=== PATIENT | male | born 1960 | race Caucasian/White ===

== ENCOUNTER 2019-10-26 20:35 | Emergency (ER) | payer OTHER, SELFPAY ==
--- NOTE | ~2019-10-26 | XR_ITS ---
EXAMINATION: XR hip LT 2V w AP pelvis EXAM DATE: 10/26/2019 21:21 INDICATION: Initial encounter following injury, with pain of the left hip. TECHNIQUE: Left hip frontal, 'frog leg' projections for interpretation. Frontal projection pelvis. There is no prior study for comparison. FINDINGS: Smooth left hip femoral head contour, no radiographic evidence of avascular necrosis. Ther e are no acute fractures or dislocations identified. There is no subcutaneous gas. The soft tissue is unremarkable. There are no radiopaque foreign bodies. There is mild symmetric bilateral hip mohamud moody osteoarthritis. IMPRESSION: Mild hip osteoarthritis. Reviewed, dictated and finalized at location A. IMPRESSION: Mild hip osteoarthritis.
--- NOTE | ~2019-10-26 | XR_ITS ---
EXAMINATION: XR lumbar spine 2-3V EXAM DATE: 10/26/2019 21:20 INDICATION: Fall, low back pain. TECHNIQUE: Lumber spine frontal, lateral, lateral L5-S1 projections for interpretation. There is no prior study for comparison. FINDINGS: Mild to moderate L5-S1 disc disease, mild at L4-5. There are no acute fractures identified . The vertebral bodies are aligned in the AP dimension. Mild to moderate lower lumbar facet arthropat hy. Sacrum, sacroiliac joints, sacral arcuate lines are intact. Paraspinal soft tissue is unremarkabl e. IMPRESSION: Mild/moderate lumbar spondylosis. Reviewed, dictated and finalized at location A.
[2019-10-26 20:37] VITALS: BP 179/75; PULSE 47; RESP 18; TEMP 36.2; O2SAT 99
--- NOTE | 2019-10-26 20:56 | ED.BACK ---
HPI - Back Pain/Injury General Chief Complaint: Back Pain/Injury Stated Complaint: back pain Time Seen by Provider: 10/26/19 20:45 Source: patient and family Mode of arrival: ambulatory Limitations: no limitations History of Present Illness HPI Narrative: This patient is a 59 year old male who presents for evaluation of back pain s/p fall. Patient state he fell last night . He slipped and he fell back lee. He hit his mid back on the door. He denies LOC, dizziness or headache. He also denies lower extremity weakness or numbness. He has been able to ambulate. He had severe left buttock pain yesterday but that has improved. He is taking ibuprofen for his pain and his last dose was 7 hours ago. MD elicited complaint: back injury and fall Related Data Home Medications Medication Instructions Recorded Confirmed allopurinol 10/26/19 benztropine 10/26/19 chlordiazepoxide HCl 10/26/19 duloxetine mg PO 10/26/19 fluvoxamine mg 10/26/19 indapamide mg 10/26/19 pravastatin 10/26/19 quetiapine mg PO 10/26/19 10/26/19 Allergies Allergy/AdvReac Type Severity Reaction Status Date / Time Penicillins Allergy Unknown Unknown Verified 10/26/19 22:17 Review of Systems Review of Systems: All systems reviewed & are unremarkable except as noted in HPI and below Constitutional: Constitutional: Denies chills and Denies fever(s) Cardiovascular: Cardiovascular: Denies chest pain Respiratory: Respiratory: Denies cough and Denies dyspnea Gastrointestinal: Gastrointestinal: Denies abdominal pain, Denies nausea and Denies vomiting Genitourinary: Genitourinary: Denies hematuria Musculoskeletal: Musculoskeletal: Reports back pain Neurologic: Denies dizziness and Denies headache(s) PMF Past Medical History Medical History (Updated 10/26/19 @ 21:42 by Pilar Siu MD) Anxiety Depression Hypertension Kidney stones Social History Social History (Updated 10/26/19 @ 21:04 by Pilar Siu MD) Smoking status: Never smoker Alcohol intake: never Exam Narrative: Exam Narrative: GENERAL: Well-appearing, well-nourished, and in no acute distress. HEAD: Normocephalic, atraumatic EYES: PERRLA and EOMI, conjunctiva clear without discharge THROAT:Mucous membranes moist, O NECK: Supple, without lymphadenopathy or mass RESPIRATORY: No respiratory distress, Airway patent, Respirations non-labored, Clear to auscultation without rales, rhonchi or wheeze HEART: Regular rate and rhythm. No murmur heard. Normal peripheral pulses. ABDOMEN: Soft, nontender, nondistended, normal active bowel sounds. No masses. No rebound or guarding, No organomegaly. EXTREMITIES: No edema, normal strength with full range of motion. SKIN: Warm, dry, normal color without rash NEURO: Alert and oriented x3. CN 2-12 grossly intact. No focal deficits. PSYCH: Normal mood and affect. Back/Spine/Pelvis: Thoracic/Lumbar Spine: thoracic spinal tenderness and lumbar spinal tenderness Course Reevaluation(s) Reevaluation #1: I discussed with patient and family xrays show no acute fracture Date: 10/26/19 Time: 21:41 Vital Signs Vital signs: Vital Signs Temperature 97.1 F L 10/26/19 20:37 Pulse Rate 47 L 10/26/19 20:37 Respiratory Rate 18 10/26/19 20:37 Blood Pressure 179/75 H 10/26/19 20:37 Pulse Oximetry 99 10/26/19 20:37 Temperature 97.1 F L 10/26/19 20:37 Pulse Rate 52 L 10/26/19 21:52 Respiratory Rate 18 10/26/19 21:52 Blood Pressure 138/68 10/26/19 21:52 Pulse Oximetry 97 10/26/19 21:52 MDM - Back Pain/Injury Imaging Data Radiologist's impression: ITS Impressions Lumbar Spine X-Ray 10/26/19 21:22 IMPRESSION: Mild/moderate lumbar spondylosis. Hip/Pelvis X-Ray 10/26/19 21:24 IMPRESSION: Mild hip osteoarthritis. Discharge Plan Discharge Clinical Impression: Strain of lumbar region, Contusion of hip, left Patient Disposition: Home, Self-C
[2019-10-26] MEDS: CYCLOBENZAPRINE HCL 5 MG TABLET PO (21:50)
[2019-10-26 21:52] VITALS: BP 138/68; PULSE 52; RESP 18; O2SAT 97
== END 2019-10-26 22:04 | disposition home or self-care (01) ==
PROVIDERS: Emergency Provider General Practice; PCP Internal Medicine
DX: S39.012A Strain of muscle, fascia and tendon of lower back, initial encounter (principal); S70.02XA Contusion of left hip, initial encounter; F41.9 Anxiety disorder, unspecified; F32.9 Major depressive disorder, single episode, unspecified; I10 Essential (primary) hypertension; Z87.442 Personal history of urinary calculi; M16.12 Unilateral primary osteoarthritis, left hip; M47.816 Spondylosis without myelopathy or radiculopathy, lumbar region; W01.198A Fall on same level from slipping, tripping and stumbling with subsequent striking against other object, initial encounter
CPT/HCPCS: 72100; 73502; 99284; A9270

== ENCOUNTER 2019-12-14 12:03 | Emergency (ER) | payer OTHER, SELFPAY ==
--- NOTE | ~2019-12-14 | XR_ITS ---
EXAMINATION: XR abdomen/kub 1V EXAM DATE: 12/14/2019 13:28 INDICATION: Left flank pain into testicle. TECHNIQUE: Frontal projection of the upper abdomen, frontal projection lower abdomen/pelvis for inter pretation. There is no prior study for comparison. FINDINGS: There is expected amount of colonic stool and gas. No small bowel dilation, nonobstructiv e bowel gas pattern. There are no suspicious calcifications identified. There is no organomegaly suspected. The bones are unremarkable. Lung bases are clear. IMPRESSION: Unremarkable abdomen x-ray exam. Reviewed, dictated and finalized at location A.
--- NOTE | ~2019-12-14 | CT_ITS ---
EXAMINATION: CT abdomen pelvis w con DATE: 12/14/2019 13:17 INDICATION: Left flank pain. TECHNIQUE: Computed tomography (CT) of the abdomen and pelvis was performed with 100 mL Omnipaque 350 intravenous contrast. Automated exposure control and iterative reconstruction technique were employe d. The dose-length product was 799.34 mGy-cm. COMPARISON: CT abdomen and pelvis 05/26/2017 FINDINGS: The visualized portions of the lung bases demonstrate mild atelectasis. No pleural effusion . The heart size is normal. No pericardial effusion. There are coronary artery calcifications. The li urvashi, gallbladder, spleen, pancreas, adrenal glands, and right kidney are normal. There is mild left h ydronephrosis and hydroureter. There is a 2 mm stone in distal left ureter. The prostate is moderatel y enlarged. There are no dilated loops of bowel. The appendix is normal. There are no pathologically enlarged lymph nodes. There is no free intraperitoneal fluid. There is moderate lower lumbar spondylo sis. IMPRESSION: 1. 2 mm stone in distal left ureter with mild left hydronephrosis and hydroureter. Reviewed, dictated and finalized at location A. IMPRESSION: 1. 2 mm stone in distal left ureter with mild left hydronephrosis and hydroure ter.
[2019-12-14 12:14] VITALS: BP 136/67; PULSE 50; RESP 18; TEMP 36.3; O2SAT 98
[2019-12-14 12:40] VITALS: BP 150/77; PULSE 48; RESP 18; O2SAT 98
[2019-12-14 12:41] LABS: Basophils Absolute Auto 0.1 K/mm3 (0.0-0.1); Basophils Percent Auto 1.3 % (0.2-1.2); Eosinophils Absolute Auto 0.2 K/mm3 (0-0.3); Eosinophils Percent Auto 2.7 % (0-4.4); Hematocrit 34.2 % (42.0-52.0); Hemoglobin 11.7 g/dL (14.0-18.0); Immature Granulocyte Absolute 0.02 K/mm3 (0.00-0.031); Immature Granulocyte Percent A 0.3 % (0-0.5); Lymphocytes Percent Auto 18.3 % (18.3-44.2); Mean Corpuscular HGB Conc 34.2 g/dl (32-36); Mean Corpuscular Hemoglobin 29.3 pg (26-34); Mean Corpuscular Volume 85.7 fl (80-100); Mean Platelet Volume 11.9 fl (7.4-10.4); Monocytes Absolute Auto 0.5 K/mm3 (0.1-0.6); Monocytes Percent Auto 7.2 % (2.6-8.5); Neutrophils Percent Auto 70.2 % (45.5-73.1); Platelet Count Result 158 k/mm3 (150-375); Red Blood Count 3.99 M/mm3 (4.6-6.20); Red Cell Distribution Width 12.6 % (11.5-14.5); White Blood Count 7.1 K/mm3 (4.5-10.0)
[2019-12-14] MEDS: SODIUM CHLORIDE 0.9% IV 1,000 ML 999 ML IV CONT (12:51)
[2019-12-14 12:53] LABS: Anion Gap 7 mmol/L (8-16); Blood Urea Nitrogen 28 mg/dL (9-20); Calcium 9.2 mg/dL (8.4-10.2); Carbon Dioxide 30 mmol/L (22-30); Chloride 104 mmol/L (98-107); Estimated CRCL calculation 58 ml/min; Estimated Glomerular Filt Rate 52; Glucose 102 mg/dL (75-110); Sodium 141 mmol/L (137-145)
[2019-12-14 12:54] LABS: Add Urine Microscopic? YES; Appearance Urine Clear (Clear); Bilirubin Urine Negative (Negative); Blood Urine 2+ (Negative); Color Urine Yellow (Yellow); Glucose Urine UA Negative (Negative); Ketones Urine Negative (Negative); Leukocyte Esterase Ur Negative LEU/UL (Negative); Mucus Urine Rare /lpf; Nitrate Urine Negative (Negative); Protein Urine Negative (Negative); RBC Urine 21-50 /hpf (0-2); Urobilinogen Urine Negative mg/dL (<2.0); WBC Urine 0-3 /hpf
--- NOTE | 2019-12-14 12:54 | PC.NURSE ---
SPOKE WITH MAILER CHRISTIANO AT THIS TIME AT PT REQUEST, ASKED THAT SHE RETURN TO BEDSIDE.
--- NOTE | 2019-12-14 13:43 | ED.ABDPAIN ---
HPI - Abdominal Pain General Chief Complaint: Abdominal Pain Stated Complaint: possible kidney stone Time Seen by Provider: 12/14/19 12:31 Source: patient Mode of arrival: ambulatory Limitations: no limitations History of Present Illness HPI narrative: Patient is a 59-year-old male who presents emergency department for evaluation of left-sided flank pain history of urolithiasis. Patient noted moderate aching pain for which he took ibuprofen and on arrival notes minimal pain. Patient has historically passed the stones Related Data Home Medications Medication Instructions Recorded Confirmed allopurinol 10/26/19 benztropine 10/26/19 chlordiazepoxide HCl 10/26/19 duloxetine mg PO 10/26/19 fluvoxamine mg 10/26/19 indapamide mg 10/26/19 pravastatin 10/26/19 quetiapine mg PO 10/26/19 10/26/19 Allergies Allergy/AdvReac Type Severity Reaction Status Date / Time Penicillins Allergy Unknown Unknown Verified 10/26/19 22:17 Review of Systems Review of Systems: All systems reviewed & are unremarkable except as noted in HPI and below PMFSH Past Medical History Medical History Anxiety Depression Hypertension Kidney stones Social History Social History Smoking status: Never smoker Alcohol intake: never Exam Narrative: Exam Narrative: GENERAL: Well-appearing, well-nourished, and in no acute distress. HEAD: Normocephalic, atraumatic. EYES: PERRLA and EOMI. ENT: Nares clear, no rhinorrhea or epistaxis. Mucous membranes moist. CHEST: Clear to auscultation. No respiratory distress. No wheezes rales or rhonchi HEART: Regular rate and rhythm. No murmur heard. Normal peripheral pulses. ABDOMEN: Soft, nontender, nondistended EXTREMITIES: Normal range of motion. No edema. SKIN: Warm, dry, no rash. NEURO: No focal deficits. Alert and oriented x3. PSYCH: Normal mood and affect. Course Course Emergency Course: Patient in the room in no distress aware of case findings treatment plan diagnosis felt appropriate for discharge home and follow-up with urology 2 mm stone given fluids and medication emergency department Vital Signs Vital signs: Vital Signs Temperature 97.3 F L 12/14/19 12:14 Pulse Rate 50 L 12/14/19 12:14 Respiratory Rate 18 12/14/19 12:14 Blood Pressure 136/67 12/14/19 12:14 Pulse Oximetry 98 12/14/19 12:14 Temperature 97.3 F L 12/14/19 12:14 Pulse Rate 48 L 12/14/19 12:40 Respiratory Rate 18 12/14/19 12:40 Blood Pressure 150/77 H 12/14/19 12:40 Pulse Oximetry 98 12/14/19 12:40 MDM - Abdominal Pain MDM Narrative Medical decision making narrative: Patient with urolithiasis in no distress 2 mm stone felt appropriate for discharge home provided with reasons to return will follow with urology Lab Data Result diagrams: 12/14/19 12:35 12/14/19 12:34 Labs: Lab Results 12/14/19 12/14/19 12/14/19 Range/Units 12:34 12:34 12:35 WBC 7.1 (4.5-10.0) K/mm3 RBC 3.99 L (4.6-6.20) M/mm3 Hgb 11.7 L (14.0-18.0) g/dL Hct 34.2 L (42.0-52.0) % MCV 85.7 (80-100) fl MCH 29.3 (26-34) pg MCHC 34.2 (32-36) g/dl RDW 12.6 (11.5-14.5) % Plt Count 158 (150-375) k/mm3 MPV 11.9 H (7.4-10.4) fl Immature Gran % (Auto) 0.3 (0-0.5) % Neut % (Auto) 70.2 (45.5-73.1) % Lymph % (Auto) 18.3 (18.3-44.2) % Beckham % (Auto) 7.2 (2.6-8.5) % Eos % (Auto) 2.7 (0-4.4) % Baso % (Auto) 1.3 H (0.2-1.2) % Lymph # (Auto) 1.30 (0.9-3.2) K/mm3 Beckham # (Auto) 0.5 (0.1-0.6) K/mm3 Eos # (Auto) 0.2 (0-0.3) K/mm3 Baso # (Auto) 0.1 (0.0-0.1) K/mm3 Abs Immat Gran (auto) 0.02 (0.00-0.031) K/mm3 Absolute Neuts (auto) 5.0 (1.3-6.7) K/mm3 Absolute Nucleated RBC 0.0 (0.0-0.012) K/mm3 Nucleated RBC % 0.0 (0.0-0.2) % Sodium 141 (137-145) mmol/L Potassium
[2019-12-14] MEDS: MORPHINE SULFATE (*CRX) 4 MG/ML INJ IV PUSH (13:52)
[2019-12-14 13:54] VITALS: BP 182/78; PULSE 46; RESP 19; O2SAT 100
[2019-12-14 13:55] VITALS: PULSE 70; RESP 17; O2SAT 100
[2019-12-14] MEDS: HYDROcodone/acetaminophen (*CRX) 7.5-325 MG TABLET 1 TAB PO (14:30)
[2019-12-14 14:34] VITALS: BP 171/75; PULSE 43; RESP 16; O2SAT 100
== END 2019-12-14 14:36 | disposition home or self-care (01) ==
PROVIDERS: Emergency Medicine; Emergency Provider Emergency Medicine; PCP Internal Medicine
DX: N13.2 Hydronephrosis with renal and ureteral calculous obstruction (principal); F41.9 Anxiety disorder, unspecified; F32.9 Major depressive disorder, single episode, unspecified; I10 Essential (primary) hypertension; Z87.442 Personal history of urinary calculi
CPT/HCPCS: 36415; 74018; 74177; 80048; 81001; 85025; 96361; 96374; 99284; A9270; J2270; J7030; Q9967

== ENCOUNTER 2020-02-07 09:30 | Outpatient (CLI) | payer OTHER, SELFPAY ==
[2020-02-07 09:55] LABS: Basophils Absolute Auto 0.1 K/mm3 (0.0-0.1); Eosinophils Absolute Auto 0.2 K/mm3 (0-0.3); Eosinophils Percent Auto 3.4 % (0-4.4); Hemoglobin 12.3 g/dL (14.0-18.0); Immature Granulocyte Absolute 0.02 K/mm3 (0.00-0.031); Immature Granulocyte Percent A 0.3 % (0-0.5); Lymphocytes Absolute Auto 1.36 K/mm3 (0.9-3.2); Lymphocytes Percent Auto 20.2 % (18.3-44.2); Mean Corpuscular HGB Conc 34.2 g/dl (32-36); Mean Corpuscular Hemoglobin 29.4 pg (26-34); Mean Corpuscular Volume 86.1 fl (80-100); Mean Platelet Volume 11.8 fl (7.4-10.4); Monocytes Absolute Auto 0.4 K/mm3 (0.1-0.6); Monocytes Percent Auto 5.6 % (2.6-8.5); Neutrophils Absolute Auto 4.7 K/mm3 (1.3-6.7); Neutrophils Percent Auto 69.5 % (45.5-73.1); Platelet Count Result 174 k/mm3 (150-375); Red Blood Count 4.18 M/mm3 (4.6-6.20); Red Cell Distribution Width 12.7 % (11.5-14.5); White Blood Count 6.7 K/mm3 (4.5-10.0)
[2020-02-07 10:07] LABS: Alanine Aminotransferase 20 U/L (4-50); Albumin Level 4.2 g/dL (3.5-5.1); Alkaline Phosphatase 83 U/L (38-126); Anion Gap 6 mmol/L (8-16); Aspartate Amino Transferase 28 U/L (17-59); Bilirubin,Total 0.6 mg/dL (0.2-1.3); Blood Urea Nitrogen 25 mg/dL (9-20); Calcium 9.6 mg/dL (8.4-10.2); Carbon Dioxide 31 mmol/L (22-30); Chloride 105 mmol/L (98-107); Cholesterol 114 mg/dL (0-200); Estimated Glomerular Filt Rate > 60; Glucose 103 mg/dL (75-110); Magnesium 2.3 mg/dL (1.6-2.3); Potassium 3.6 mmol/L (3.4-5.0); Sodium 142 mmol/L (137-145); Triglycerides 127 mg/dL (<150)
[2020-02-07 10:11] LABS: LDL Cholesterol Direct 59 mg/dL
[2020-02-07 10:29] LABS: HDL Direct 35 mg/dL
[2020-02-07 10:32] LABS: Prostate Specific Antigen 2.2 ng/mL (< OR = 4.0)
[2020-02-07 10:56] LABS: Free T4 Free Thyroxine 1.03 ng/mL (0.78-2.19)
== END 2020-02-07 09:31 | disposition home or self-care (01) ==
PROVIDERS: PCP Internal Medicine; Visit Provider Internal Medicine
DX: K21.9 Gastro-esophageal reflux disease without esophagitis (principal); I10 Essential (primary) hypertension; E78.00 Pure hypercholesterolemia, unspecified; N42.9 Disorder of prostate, unspecified
CPT/HCPCS: 36415; 80053; 80061; 82607; 83735; 84153; 84439; 84443; 85025

== ENCOUNTER 2020-06-29 16:12 | Outpatient (CLI) | payer OTHER, SELFPAY | END 2020-06-29 16:13 | disposition home or self-care (01) | LOC: ANHCOVIDVC 16:12 | PROVIDERS: PCP Urology | DX: Z23 Encounter for immunization (principal) | CPT/HCPCS: 0001A; 91300 ==

== ENCOUNTER 2020-07-20 13:52 | Outpatient (CLI) | payer OTHER, SELFPAY | END 2020-07-20 13:53 | disposition home or self-care (01) | LOC: ANHCOVIDVC 13:52 | PROVIDERS: PCP Urology | DX: Z23 Encounter for immunization (principal) | CPT/HCPCS: 0002A; 91300 ==

== ENCOUNTER 2020-08-07 09:56 | Outpatient (CLI) | payer OTHER, SELFPAY ==
--- NOTE | 2020-08-07 10:13 | ECG_ITS ---
Measurements Intervals [place] Rate: 51 P: 37 WY: 157 QRS: -14 QRSD: 128 T: 58 QT: 489 QTc: 450 Interpretive Statements SINUS BRADYCARDIA HIGH LATERAL INFARCT, AGE INDETERMINATE BASELINE ARTIFACT- V3 ABNORMAL ECG Electronically Signed On 08-07-2020 10:41:28 CDT by Zak Garcia D.O.
== END 2020-08-07 09:57 | disposition home or self-care (01) ==
LOC: ANHCARD 09:58
PROVIDERS: PCP Internal Medicine; Visit Provider Psychiatry & Neurology Psychiatry
DX: R00.0 Tachycardia, unspecified (principal); R00.1 Bradycardia, unspecified; I25.2 Old myocardial infarction
CPT/HCPCS: 93005

== ENCOUNTER 2020-08-30 12:59 | Outpatient (CLI) | payer OTHER, SELFPAY ==
--- NOTE | 2020-08-30 | ECHO_ITS ---
Patient Info Name: Gopi Hoskins Age: 60 years : 1960 Gender: Male Ht: 74 in Wt: 203 lbs BSA: 2.20 m2 HR: 59 bpm BP: 136 / 72 mmHg Heart Rhythm: Sinus Rhythm, Bradycardia Technical Quality: Good Exam Date: 08/30/2020 1:23 PM Exam Location: [facility] Patient Status: Outpatient Admit Date: 08/30/2020 Staff Ordering Physician: Jose, Solomon Diaz MD Pharmacy Technician: Chon Dunlap, CHANDANA, RT Attending Provider: Jose, Solomon Diaz MD Referring Physician: Ramon GOLDBERG; Exam Type: CA echo doppler color flow Study Info Indications R00.1 - Bradycardia, unspecified Complete two-dimensional, color flow and Doppler transthoracic echocardiogram is performed. Strain analysis performed. Summary 1. Complete two-dimensional, color flow and Doppler transthoracic echocardiogram is performed. 2. Left ventricular chamber size and systolic function are normal with no regional wall motion abnormalities with an estimated ejection fraction of 65-70%. Calculated ejection fraction 69%. Borderline LVH. Grade 2 diastolic. Normal global longitudinal strain,-21%. 3. Right ventricular chamber dimension is mildly enlarged with normal systolic function. 4. Left atrial chamber dimension is mildly enlarged. 5. There is moderate aortic valve calcification and mildly elevated trans valvular velocity of 2.3 m/sec but no significant stenosis. 6. The mitral valve annulus is moderately calcified with trace regurgitation. 7. The aortic root size at the sinus of Valsalva is mildly dilated at 4.3 cm. 8. Normal sinus rhythm. Left Ventricle Left ventricular chamber dimension is normal. Left ventricular systolic function is normal, estimated at 65-70%. There is mildly increased left ventricular wall thickness. Left ventricular septal wall motion is normal. The left ventricular diastolic function is grade II diastolic dysfunction. Global longitudinal strain is normal at -21 %. Left ventricular chamber size and systolic function are normal with no regional wall motion abnormalities with an estimated ejection fraction of 65-70%. Calculated ejection fraction 69%. Borderline LVH. Grade 2 diastolic. Normal global longitudinal strain,-21%. Right Ventricle Right ventricular chamber dimension is mildly enlarged with normal systolic function. Right ventricular systolic function is normal. Left Atria Left atrial chamber dimension is mildly enlarged. Right Atria Right atrial chamber dimension is normal. Aortic Valve The aortic valve is trileaflet. There is no aortic valve sclerosis. There is no aortic valve stenosis. There is no aortic valve regurgitation. There is moderate aortic valve calcification and mildly elevated trans valvular velocity of 2.3 m/sec but no significant stenosis. Pulmonic Valve The pulmonic valve is normal. There is no pulmonic valve stenosis. There is no pulmonic regurgitation. Mitral Valve The mitral valve has thickened leaflets. There is no mitral valve stenosis. There is trace mitral valve regurgitation. The mitral valve annulus is moderately calcified with trace regurgitation. Tricuspid Valve The tricuspid valve leaflets are normal. There is no significant tricuspid valve stenosis. There is trace tricuspid valve regurgitation. No pulmonary hypertension, estimated pulmonary arterial systolic pressure is Empty. Pericardium/Pleural The pericardium appears normal. There is no pericardial effusion. Inferior Vena Cava Normal inferi
--- NOTE | 2020-09-04 14:42 | P.PCNHOL_ITS ---
Holter/Event Monitor Holter/Event Monitor Date of procedure: 09/04/20 Holter/Event Procedure: 48 Hr Holter Monitor Diagnosis: Bradycardia Indications: bradycardia Image/Tracing Quality: favorable Finding: the basic cardiac rhythm is sinus with normal p.r.n. QT interval. QRS duration is 0.122 sec slightly above normal limits indicating mild intraventricular conduction delay. heart rate varies from a minimum of 40 which occurred at 3:45 a.m. to a maximum of 111 which occurred at 12:57 p.m.. The average heart rate was 60 beats per minute. There were no abrupt pauses or abnormalities of AV conduction. The longest RR interval recorded was 1.6 seconds. Supraventricular ectopic activity was infrequent consisting of PACs occurring throughout the day. There was 1 3 beat atrial run that occurred at 7:09 p.m.. There were no runs of atrial arrhythmias and there were no examples of atrial fibrillation ventricular ectopic activity consisted of single PVCs occurring at low frequency averaging 0.2% of the QRS complexes. There was 1 ventricular couplet the remainder of the ventricular ectopic activity was in the form of single PVCs. The patient returned a blank symptom diary presumably there were no symptoms during this exam Conclusion: 1. normal sinus rhythm with normal heart rate variability. no significant [place] arrhythmias which was apparently the clinical concern 2. low-frequency atrial and ventricular ectopic activity as detailed above David Mejía MD [facility]
== END 2020-08-30 13:00 | disposition home or self-care (01) ==
PROVIDERS: PCP Internal Medicine; Visit Provider Internal Medicine
DX: R00.1 Bradycardia, unspecified (principal); I70.0 Atherosclerosis of aorta
CPT/HCPCS: 93225; 93226; 93227; 93306

== ENCOUNTER 2020-10-15 21:55 | Emergency (ER) | payer OTHER, SELFPAY ==
[2020-10-15 22:03] VITALS: BP 154/76; PULSE 72; RESP 18; TEMP 36.9; O2SAT 100
--- NOTE | 2020-10-15 22:19 | ECG_ITS ---
Measurements Intervals [place] Rate: 50 P: 36 NV: 168 QRS: -41 QRSD: 128 T: 76 QT: 465 QTc: 425 Interpretive Statements SINUS BRADYCARDIA LEFT AXIS DEVIATION INTRAVENTRICULAR CONDUCTION DELAY HIGH LATERAL INFARCT, AGE INDETERMINATE ABNORMAL ECG Electronically Signed On 10-16-2020 8:44:22 CDT by Zak Garcia D.O.
[2020-10-15 22:31] LABS: Basophils Absolute Auto 0.1 K/mm3 (0.0-0.1); Basophils Percent Auto 0.9 % (0.2-1.2); Eosinophils Absolute Auto 0.3 K/mm3 (0-0.3); Hematocrit 31.5 % (42.0-52.0); Hemoglobin 10.1 g/dL (14.0-18.0); Immature Granulocyte Absolute 0.03 K/mm3 (0.00-0.031); Immature Granulocyte Percent A 0.4 % (0-0.5); Lymphocytes Absolute Auto 1.61 K/mm3 (0.9-3.2); Mean Corpuscular HGB Conc 32.1 g/dl (32-36); Mean Corpuscular Hemoglobin 28.9 pg (26-34); Mean Platelet Volume 11.7 fl (7.4-10.4); Monocytes Absolute Auto 0.5 K/mm3 (0.1-0.6); Neutrophils Absolute Auto 5.1 K/mm3 (1.3-6.7); Neutrophils Percent Auto 66.7 % (45.5-73.1); Platelet Count Result 162 k/mm3 (150-375); White Blood Count 7.7 K/mm3 (4.5-10.0)
[2020-10-15 22:41] LABS: Alanine Aminotransferase 21 U/L (4-50); Albumin Level 3.7 g/dL (3.5-5.1); Alkaline Phosphatase 75 U/L (38-126); Anion Gap 7 mmol/L (8-16); Aspartate Amino Transferase 27 U/L (17-59); Bilirubin,Total 0.1 mg/dL (0.2-1.3); Blood Urea Nitrogen 42 mg/dL (9-20); Calcium 9.2 mg/dL (8.4-10.2); Carbon Dioxide 31 mmol/L (22-30); Chloride 108 mmol/L (98-107); Estimated CRCL calculation 54 ml/min; Estimated Glomerular Filt Rate 47; Ethanol < 10 mg/dL (<10); Glucose 94 mg/dL (65-110); Potassium 3.9 mmol/L (3.4-5.0); Sodium 146 mmol/L (137-145)
[2020-10-15 22:53] LABS: Add Urine Microscopic? YES; Appearance Urine Clear (Clear); Bilirubin Urine Negative (Negative); Blood Urine Negative (Negative); Color Urine Yellow (Yellow); Glucose Urine UA Negative (Negative); Ketones Urine Negative (Negative); Leukocyte Esterase Ur Negative LEU/UL (Negative); Mucus Urine Rare /lpf; Nitrate Urine Negative (Negative); Protein Urine Negative (Negative); RBC Urine 0-2 /hpf (0-2); Squamous Epithelial Cell Urine Rare /hpf (Few); Urobilinogen Urine Negative mg/dL (<2.0); WBC Urine 0-3 /hpf
[2020-10-15 23:07] LABS: Benzodiazepines Screen Urine Positive (Negative)
[2020-10-15 23:09] LABS: Barbiturate Screen Urine Negative (Negative)
[2020-10-15 23:24] LABS: Amphetamine Screen Urine Negative (Negative); Cannabinoid Screen Urine Negative (Negative); Cocaine Screen Urine Negative (Negative); Methadone Screen Urine Negative (Negative); Opiate Screen Urine Negative (Negative); Phencyclidine Screen Urine Negative (Negative)
--- NOTE | 2020-10-15 23:28 | PC.NURSE ---
and pt report pt feels ok to go home. pt a/o x 4. good eye contact.
== END 2020-10-15 23:28 | disposition left against medical advice (07) ==
LOC: ANHED 11-13 10:25
PROVIDERS: Emergency Medicine; Emergency Provider Emergency Medicine; PCP Internal Medicine
DX: F22 Delusional disorders (principal)
CPT/HCPCS: 36415; 80053; 80307; 81001; 84443; 85025; 93005; 96360; 99199; 99283

== ENCOUNTER 2021-01-09 10:46 | Outpatient (CLI) | payer OTHER, SELFPAY ==
[2021-01-09 11:03] LABS: Basophils Absolute Auto 0.1 K/mm3 (0.0-0.1); Basophils Percent Auto 0.8 % (0.2-1.2); Eosinophils Absolute Auto 0.2 K/mm3 (0-0.3); Eosinophils Percent Auto 2.4 % (0-4.4); Hemoglobin 12.2 g/dL (14.0-18.0); Immature Granulocyte Absolute 0.01 K/mm3 (0.00-0.031); Immature Granulocyte Percent A 0.2 % (0-0.5); Lymphocytes Absolute Auto 1.17 K/mm3 (0.9-3.2); Lymphocytes Percent Auto 18.6 % (18.3-44.2); Mean Corpuscular Hemoglobin 30.5 pg (26-34); Mean Corpuscular Volume 92.5 fl (80-100); Mean Platelet Volume 11.5 fl (7.4-10.4); Monocytes Absolute Auto 0.4 K/mm3 (0.1-0.6); Monocytes Percent Auto 6.8 % (2.6-8.5); Neutrophils Absolute Auto 4.5 K/mm3 (1.3-6.7); Neutrophils Percent Auto 71.2 % (45.5-73.1); Platelet Count Result 151 k/mm3 (150-375); Red Cell Distribution Width 12.5 % (11.5-14.5); White Blood Count 6.3 K/mm3 (4.5-10.0)
== END 2021-01-09 10:47 | disposition home or self-care (01) ==
PROVIDERS: PCP Internal Medicine; Visit Provider Psychiatry & Neurology Psychiatry
DX: F42.9 Obsessive-compulsive disorder, unspecified (principal)
CPT/HCPCS: 36415; 85025

== ENCOUNTER 2021-01-19 10:25 | Outpatient (CLI) | payer OTHER, SELFPAY ==
[2021-01-19 11:00] LABS: Basophils Absolute Auto 0.1 K/mm3 (0.0-0.1); Basophils Percent Auto 1.2 % (0.2-1.2); Eosinophils Absolute Auto 0.1 K/mm3 (0-0.3); Eosinophils Percent Auto 1.6 % (0-4.4); Hemoglobin 11.7 g/dL (14.0-18.0); Immature Granulocyte Absolute 0.03 K/mm3 (0.00-0.031); Immature Granulocyte Percent A 0.4 % (0-0.5); Lymphocytes Absolute Auto 1.25 K/mm3 (0.9-3.2); Lymphocytes Percent Auto 18.6 % (18.3-44.2); Mean Corpuscular HGB Conc 33.4 g/dl (32-36); Mean Corpuscular Hemoglobin 30.3 pg (26-34); Mean Corpuscular Volume 90.7 fl (80-100); Mean Platelet Volume 11.7 fl (7.4-10.4); Monocytes Absolute Auto 0.4 K/mm3 (0.1-0.6); Monocytes Percent Auto 6.4 % (2.6-8.5); Neutrophils Absolute Auto 4.8 K/mm3 (1.3-6.7); Neutrophils Percent Auto 71.8 % (45.5-73.1); Platelet Count Result 151 k/mm3 (150-375); Red Blood Count 3.86 M/mm3 (4.6-6.20); Red Cell Distribution Width 12.7 % (11.5-14.5); White Blood Count 6.7 K/mm3 (4.5-10.0)
[2021-01-19 11:18] LABS: Alanine Aminotransferase 20 U/L (4-50); Albumin Level 4.1 g/dL (3.5-5.1); Alkaline Phosphatase 65 U/L (38-126); Anion Gap 7 mmol/L (8-16); Aspartate Amino Transferase 28 U/L (17-59); Bilirubin,Total 0.6 mg/dL (0.2-1.3); Blood Urea Nitrogen 29 mg/dL (9-20); Calcium 9.4 mg/dL (8.4-10.2); Carbon Dioxide 29 mmol/L (22-30); Chloride 107 mmol/L (98-107); Cholesterol 122 mg/dL (0-200); Estimated Glomerular Filt Rate > 60; Glucose 98 mg/dL (65-110); HDL Direct 48 mg/dL; Potassium 4.1 mmol/L (3.4-5.0); Sodium 143 mmol/L (137-145); Triglycerides 65 mg/dL (<150); Uric Acid 4.9 mg/dL (3.5-8.5)
[2021-01-19 11:29] LABS: LDL Cholesterol Direct 56 mg/dL
[2021-01-19 11:42] LABS: Free T4 Free Thyroxine 1.28 ng/mL (0.78-2.19)
[2021-01-19 11:49] LABS: Prostate Specific Antigen 2.4 ng/mL (< OR = 4.0)
== END 2021-01-19 10:26 | disposition home or self-care (01) ==
LOC: ANHLAB 10:26
PROVIDERS: PCP Internal Medicine; Visit Provider Internal Medicine
DX: E78.00 Pure hypercholesterolemia, unspecified (principal); M10.9 Gout, unspecified; N42.9 Disorder of prostate, unspecified
CPT/HCPCS: 36415; 80053; 80061; 84153; 84439; 84443; 84550; 85025

== ENCOUNTER 2021-05-01 09:54 | Outpatient (CLI) | payer OTHER, SELFPAY ==
[2021-05-01 10:31] LABS: Basophils Absolute Auto 0.1 K/mm3 (0.0-0.1); Basophils Percent Auto 0.8 % (0.2-1.2); Eosinophils Absolute Auto 0.2 K/mm3 (0-0.3); Eosinophils Percent Auto 2.8 % (0-4.4); Hematocrit 34.6 % (42.0-52.0); Hemoglobin 11.4 g/dL (14.0-18.0); Immature Granulocyte Absolute 0.02 K/mm3 (0.00-0.031); Immature Granulocyte Percent A 0.3 % (0-0.5); Immature Platelet Fraction Pct 6.5 % (0.9-11.2); Lymphocytes Absolute Auto 1.44 K/mm3 (0.9-3.2); Lymphocytes Percent Auto 22.6 % (18.3-44.2); Mean Corpuscular HGB Conc 32.9 g/dl (32-36); Mean Corpuscular Hemoglobin 30.6 pg (26-34); Mean Platelet Volume 11.8 fl (7.4-10.4); Monocytes Absolute Auto 0.5 K/mm3 (0.1-0.6); Monocytes Percent Auto 7.2 % (2.6-8.5); Neutrophils Absolute Auto 4.2 K/mm3 (1.3-6.7); Neutrophils Percent Auto 66.3 % (45.5-73.1); Platelet Count Result 146 k/mm3 (150-375); Red Blood Count 3.72 M/mm3 (4.6-6.20); Red Cell Distribution Width 12.6 % (11.5-14.5); White Blood Count 6.4 K/mm3 (4.5-10.0)
[2021-05-01 11:21] LABS: Alanine Aminotransferase 16 U/L (4-50); Albumin Level 4.1 g/dL (3.5-5.1); Alkaline Phosphatase 68 U/L (38-126); Anion Gap 5 mmol/L (8-16); Aspartate Amino Transferase 36 U/L (17-59); Bilirubin,Total 0.7 mg/dL (0.2-1.3); Blood Urea Nitrogen 29 mg/dL (9-20); Calcium 8.9 mg/dL (8.4-10.2); Carbon Dioxide 29 mmol/L (22-30); Chloride 108 mmol/L (98-107); Cholesterol 130 mg/dL (0-200); Estimated Glomerular Filt Rate 56; Glucose 92 mg/dL (65-110); HDL Direct 54 mg/dL; Potassium 4.2 mmol/L (3.4-5.0); Sodium 142 mmol/L (137-145); Triglycerides 51 mg/dL (<150)
[2021-05-01 11:28] LABS: Free T4 Free Thyroxine 1.08 ng/mL (0.78-2.19)
[2021-05-01 11:31] LABS: LDL Cholesterol Direct 58 mg/dL
[2021-05-01 11:51] LABS: Prostate Specific Antigen 2.7 ng/mL (< OR = 4.0)
== END 2021-05-01 09:55 | disposition home or self-care (01) ==
PROVIDERS: PCP Internal Medicine; Visit Provider Internal Medicine
DX: N42.9 Disorder of prostate, unspecified (principal); E78.00 Pure hypercholesterolemia, unspecified; I10 Essential (primary) hypertension
CPT/HCPCS: 36415; 80053; 80061; 84153; 84439; 84443; 85025; 85055

== ENCOUNTER 2021-05-03 10:11 | Outpatient (CLI) | payer OTHER, SELFPAY ==
[2021-05-03 11:35] LABS: Vitamin B12 > 1000.0 pg/mL (239-931)
[2021-05-03 11:58] LABS: Iron 87 ug/dL (49-181)
[2021-05-03 12:07] LABS: Percent Iron Saturation 27 % (20-50)
== END 2021-05-03 10:12 | disposition home or self-care (01) ==
LOC: ANHLAB 10:13
PROVIDERS: PCP Internal Medicine; Visit Provider Internal Medicine
DX: D64.9 Anemia, unspecified (principal)
CPT/HCPCS: 36415; 82607; 82728; 83540; 83550

== ENCOUNTER 2021-09-11 09:31 | Inpatient (IN) | payer OTHER, SELFPAY ==
[2021-09-11] VITALS (19 sets, daily range): BP systolic 138–196; BP diastolic 72–109; PULSE 78–118; RESP 11–37; TEMP 36.7; O2SAT 98–99
--- NOTE | ~2021-09-11 | XR_ITS ---
EXAMINATION: XR chest 1V portable INDICATION: Cough TECHNIQUE: Portable AP chest at 1349 hours COMPARISON: 09/16/2021 FINDINGS: There are airspace opacities of the right lung base. No pleural effusion or pneumothorax. T he cardiomediastinal silhouette is normal. A nasogastric tube is in the stomach. IMPRESSION: 1. Right basilar airspace opacities, consistent with atelectasis versus pneumonia. Reviewed, dictated and finalized at location B. IMPRESSION: 1. Right basilar airspace opacities, consistent with atelectasis versus pneumon ia.
--- NOTE | ~2021-09-11 | XR_ITS ---
XR chest 1V portable DATE: 09/16/2021 05:51 INDICATION: Respiratory failure TECHNIQUE: Portable AP chest on 09/16/2021 at 0526 hours COMPARISON: 09/15/2021 portable AP chest at 0549 hours FINDINGS: The ET tube is been removed since 09/15/2021. There are bibasilar bibasilar infiltrates and/or atelectasis since 09/15/2021. Heart size appears within normal range. No pleural effusion or pulmonary vascular congestion or pneum othorax. NG tube in gastric fundus. IMPRESSION: Removal of ET tube and interval development of bibasilar infiltrate and/or atelectasis si nce 09/15/2021 Reviewed, dictated and finalized at location A. IMPRESSION: Removal of ET tube and interval development of bibasilar infiltrate and/or atelectasis since 09/15/2021
--- NOTE | ~2021-09-11 | CT_ITS ---
EXAMINATION: CTA chest PE protocol DATE: 09/13/2021 13:03 INDICATION: Hypoxia, tachycardia, COVID 19 positive TECHNIQUE: Computed tomography angiography (CTA) of the chest was performed with 100 mL Omnipaque-350 intravenous contrast timed to evaluate the pulmonary arteries. Coronal maximum intensity projection 3D-reconstructions were created by the technologist. The dose-length product (DLP) was 531.91 mGy-cm. Automated exposure control and iterative reconstruction technique were employed. COMPARISON: None. FINDINGS: The pulmonary arteries are well-opacified. No pulmonary embolism is identified. The endotra cheal and nasogastric tubes are in adequate position. There are patchy airspace opacities of the lowe r lobes. No pleural effusion or pneumothorax. 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 Calcified coronary artery atherosclerosis is noted. No pathologically enlarge d thoracic lymph nodes are identified. The heart size is normal. There is mild thoracic spondylosis. IMPRESSION: 1. No pulmonary embolism. 2. Patchy airspace opacities of the lower lobes, consistent with pneumonia. Reviewed, dictated and finalized at location F.
--- NOTE | ~2021-09-11 | XR_ITS ---
XR chest 1V portable DATE: 09/15/2021 06:42 INDICATION: Respiratory failure TECHNIQUE: Portable AP chest on 09/15/2021 at 0549 hours COMPARISON: 09/13/2021 portable AP chest at 1419 hours FINDINGS: ET tube in satisfactory position 3.8 cm above inder. NG tube in gastric fundus. No central lines. Normal heart size. Mild aortic unfolding. No hilar or mediastinal enlargement. No pulmonary infiltrat e or consolidation, pleural effusion or pulmonary vascular congestion or pneumothorax. IMPRESSION: No active cardiopulmonary disease Reviewed, dictated and finalized at location A.
--- NOTE | ~2021-09-11 | CT_ITS ---
EXAMINATION: CT brain wo con DATE: 09/13/2021 13:03 INDICATION: Seizure TECHNIQUE: Computed tomography (CT) of the head was performed without intravenous contrast. Sagittal and coronal reconstructions were performed. The mA was adjusted according to patient size. Iterative reconstruction technique was employed. The dose-length product was 908.00 mGy-cm. COMPARISON: head CT dated 03/13/17 FINDINGS: Partially visualized endotracheal tube and nasogastric tube in expected positions. Streak artifact fr om multiple dental restorations which mildly limits evaluation in the posterior fossa. No acute intra cranial hemorrhage, acute infarction or abnormal extra axial fluid collection. Symmetric prominence o f the sulci and subarachnoid spaces overlying the convexities consistent with mild age-appropriate di ffuse cerebral volume loss. Ventricles are normal and symmetric. No mass/mass effect. Mucosal thicke jose alfredo in the bilateral ethmoid sinuses and in the bilateral maxillary sinuses where there are also misbah ateral mucous retention cysts. The orbits and mastoid air cells are normal. IMPRESSION: 1. Normal aging brain with mild age-appropriate diffuse cerebral volume loss. No acute intracranial p rocess. Reviewed, dictated and finalized at location A. IMPRESSION: 1. Normal aging brain with mild age-appropriate diffuse cerebral volume loss. N o acute intracranial process.
--- NOTE | ~2021-09-11 | XR_ITS ---
XR abdomen NG/feed tube insert DATE: 09/17/2021 08:07 INDICATION: NG tube insertion TECHNIQUE: Portable supine AP view on 09/2021 at 0756 hours COMPARISON: 12/14/2019 KUB FINDINGS: NG tube in gastric fundus, the proximal side port almost 6 cm distal to the diaphragmatic h iatus. No evidence of bowel obstruction is detected. No intra-abdominal visceromegaly is noted. IMPRESSION: NG tube in stomach Reviewed, dictated and finalized at Location A. Reviewed, dictated and finalized at location A. IMPRESSION: NG tube in stomach
--- NOTE | ~2021-09-11 | XR_ITS ---
XR chest 1V portable DATE: 09/16/2021 10:05 INDICATION: Shortness of breath TECHNIQUE: AP chest on 09/16/2021 at 0951 hours COMPARISON: 10/13/2021 portable upright AP chest at 05 FINDINGS: Mild bibasilar infiltrate and/atelectasis, increased on the left since 10/13/2021 0526 hours . No pleural effusion or pulmonary vascular congestion or pneumothorax. Normal heart size. Nasogastric tube in gastric fundus. IMPRESSION: Bibasilar infiltrate and/atelectasis, increased on the left since earlier today NG tube in gastric fundus Reviewed, dictated and finalized at location A. IMPRESSION: Bibasilar infiltrate and/atelectasis, increased on the left since joe wallace today NG tube in gastric fundus
--- NOTE | ~2021-09-11 | XR_ITS ---
EXAMINATION: XR chest 1V portable INDICATION: Respiratory failure TECHNIQUE: Portable AP chest at 1319 hours COMPARISON: None available FINDINGS: The endotracheal tube ends approximately 4.2 cm above the inder. The nasogastric tube is i n the stomach. There is minimal airspace opacities of the lung bases. No pleural effusion or pneumoth orax. The cardiomediastinal silhouette is normal. IMPRESSION: 1. Nasogastric and endotracheal tubes in adequate position. 2. Patchy bibasilar opacities, consistent with atelectasis versus pneumonia. Reviewed, dictated and finalized at location F.
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
[2021-09-11 09:51] LABS: Basophils Percent Auto 0.5 % (0.2-1.2); Eosinophils Absolute Auto 0.1 K/mm3 (0-0.3); Eosinophils Percent Auto 1.6 % (0-4.4); Hematocrit 32.1 % (37.0-47.0); Hemoglobin 10.7 g/dL (12.0-15.0); Immature Granulocyte Absolute 0.12 K/mm3 (0.00-0.031); Immature Granulocyte Percent A 2.1 % (0-0.5); Lymphocytes Absolute Auto 1.18 K/mm3 (0.9-3.2); Lymphocytes Percent Auto 20.7 % (18.3-44.2); Mean Corpuscular HGB Conc 33.3 g/dl (32-36); Mean Corpuscular Hemoglobin 29.1 pg (26-34); Mean Corpuscular Volume 87.2 fl (80-100); Mean Platelet Volume 10.9 fl (7.4-10.4); Monocytes Absolute Auto 0.4 K/mm3 (0.1-0.6); Monocytes Percent Auto 7.5 % (2.6-8.5); Neutrophils Absolute Auto 3.9 K/mm3 (1.3-6.7); Neutrophils Percent Auto 67.6 % (45.5-73.1); Platelet Count Result 220 k/mm3 (150-375); Red Blood Count 3.68 M/mm3 (4.2-5.4); Red Cell Distribution Width 12.7 % (11.5-14.5); White Blood Count 5.7 K/mm3 (4.5-10.0)
[2021-09-11 09:52] LABS: Appearance Urine Clear (Clear); Bilirubin Urine Negative (Negative); Blood Urine Negative (Negative); Color Urine Yellow (Yellow); Glucose Urine UA Negative (Negative); Ketones Urine Negative (Negative); Leukocyte Esterase Ur Negative LEU/UL (Negative); Nitrate Urine Negative (Negative); Protein Urine Negative (Negative); pH Urine 7.5 (5.0-9.0)
[2021-09-11 09:53] LABS: Add Urine Microscopic? YES
[2021-09-11 09:59] LABS: Bacteria Urine Trace /hpf; Mucus Urine Rare /lpf; RBC Urine 0-2 /hpf (0-2); Squamous Epithelial Cell Urine Rare /hpf (Few); WBC Urine 0-3 /hpf
[2021-09-11 10:08] LABS: Ethanol < 10 mg/dL (<10)
[2021-09-11 10:09] LABS: Alanine Aminotransferase 34 U/L (6-50); Albumin Level 4.2 g/dL (3.5-5.1); Alkaline Phosphatase 80 U/L (38-126); Anion Gap 7 mmol/L (8-16); Aspartate Amino Transferase 34 U/L (17-59); Bilirubin,Total 0.5 mg/dL (0.2-1.3); Blood Urea Nitrogen 23 mg/dL (9-20); Calcium 9.1 mg/dL (8.4-10.2); Carbon Dioxide 25 mmol/L (22-30); Chloride 113 mmol/L (98-107); Estimated CRCL calculation 65 ml/min; Estimated Glomerular Filt Rate > 60; Glucose 114 mg/dL (65-110); Potassium 3.6 mmol/L (3.4-5.0); Sodium 145 mmol/L (137-145)
[2021-09-11 10:18] LABS: Amphetamine Screen Urine Negative (Negative); Barbiturate Screen Urine Negative (Negative); Benzodiazepines Screen Urine Negative (Negative); Cannabinoid Screen Urine Negative (Negative); Cocaine Screen Urine Negative (Negative); Methadone Screen Urine Negative (Negative); Opiate Screen Urine Negative (Negative); Phencyclidine Screen Urine Negative (Negative)
[2021-09-11 10:25] LABS: SARS-CoV-2 RNA PCR Positive
--- NOTE | 2021-09-11 10:53 | PC.NURSE ---
chestnut crisis intervention called to evaluate patient
--- NOTE | 2021-09-11 13:21 | PC.NURSE ---
patient observed picking at air and speaking to unseen other
--- NOTE | 2021-09-11 14:05 | PC.NURSE ---
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
--- NOTE | 2021-09-12 02:15 | PC.NURSE ---
pt in room stating I want to go home with my . when asked pt orientation questions pt states I'm at [facility] and I'm waiting to be sent to that psych place. This RN updated pt on plan and reminded that no family were at the ER at this time. pt also stated he was hungry. sandwich and crackers given at this time.
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
[2021-09-12 05:56] VITALS: BP 177/107; PULSE 87; RESP 16; TEMP 36.4; O2SAT 99
[2021-09-12] MEDS: LORazepam (*CRX) 1 MG TABLET PO (06:18)
[2021-09-12 15:23] VITALS: BP 136/70; PULSE 74; RESP 16; TEMP 36.8; O2SAT 98
--- NOTE | 2021-09-12 22:21 | PC.NURSE ---
PT COOPERATIVE TODAY, AMBULATED TO BATHROOM BY SELF BUT CALLS STAFF WHEN HE NEED TO USE BATHROOM. PT HAS ASKED MULTIPLE TIMES TODAY IF WE ARE GOING TO PUT A TUBE IN HIS THROAT TO KEEP HIM FROM TALKING. ENSURED PT NO SUCH PROCEDURE WILL BE DONE.
--- NOTE | 2021-09-12 23:00 | PC.NURSE ---
Assuming care of pt.
[2021-09-13] VITALS (47 sets, daily range): BP systolic 109–186; BP diastolic 73–119; PULSE 82–130; RESP 0–48; TEMP 35.7–38.1; O2SAT 97–100; BMI 25.4
[2021-09-13] MEDS: DIVALPROEX SODIUM ER 250 MG TAB.24H PO (03:29)
[2021-09-13] MEDS: lisinopriL 20 MG TABLET 40 MG PO (03:29)
[2021-09-13] MEDS: risperiDONE 1 MG TABLET 2 MG PO (03:29)
--- NOTE | 2021-09-13 09:00 | PC.NURSE ---
pt awake. aware of person and place. pt coughing
--- NOTE | 2021-09-13 11:24 | PC.NURSE ---
in room rounding on pt and pt is diaphoretic, audible crackles tachycardic, ERP notified
--- NOTE | 2021-09-13 11:25 | ECG_ITS ---
Measurements Intervals Titus Rate: 107 P: 81 OK: 132 QRS: -74 QRSD: 130 T: 77 QT: 369 QTc: 493 Interpretive Statements SINUS TACHYCARDIA LEFT ANTERIOR FASCICULAR BLOCK [QRS AXIS <= -45, QR IN I, RS IN II] POSSIBLE OLD LATERAL MYOCARDIAL INFARCTION NO PREVIOUS ECG AVAILABLE FOR COMPARISON Electronically Signed On 09-13-2021 18:08:32 CDT by Marianna Medina M.D.
[2021-09-13 11:41] LABS: Basophils Absolute Auto 0.1 K/mm3 (0.0-0.1); Basophils Percent Auto 0.4 % (0.2-1.2); Eosinophils Absolute Auto 0.1 K/mm3 (0-0.3); Eosinophils Percent Auto 0.4 % (0-4.4); Hematocrit 40.5 % (42.0-52.0); Hemoglobin 13.5 g/dL (14.0-18.0); Immature Granulocyte Absolute 0.07 K/mm3 (0.00-0.031); Immature Granulocyte Percent A 0.5 % (0-0.5); Lymphocytes Absolute Auto 1.27 K/mm3 (0.9-3.2); Lymphocytes Percent Auto 9.3 % (18.3-44.2); Mean Corpuscular HGB Conc 33.3 g/dl (32-36); Mean Corpuscular Hemoglobin 29.5 pg (26-34); Mean Corpuscular Volume 88.4 fl (80-100); Mean Platelet Volume 10.6 fl (7.4-10.4); Monocytes Percent Auto 7.6 % (2.6-8.5); Neutrophils Absolute Auto 11.1 K/mm3 (1.3-6.7); Neutrophils Percent Auto 81.8 % (45.5-73.1); Platelet Count Result 311 k/mm3 (150-375); Red Blood Count 4.58 M/mm3 (4.6-6.20); Red Cell Distribution Width 13.1 % (11.5-14.5); White Blood Count 13.6 K/mm3 (4.5-10.0)
--- NOTE | 2021-09-13 11:46 | PC.NURSE ---
NC applied with O2 at 3l for saturation of 88% RA
[2021-09-13 11:49] LABS: Alveolar/Arterial O2 Gradient 133.3 mmHg; Base Excess ABG -1.3 mEq/l (+/-2.0); Fractional Inspired Oxygen 32 %; HCO3 ABG 22.3 mEq/l (22.0-26.0); Oxygen Content ABG 17.3 %vol (16.0-22.0); Oxygen Saturation ABG 89.7 % (95.0-100.0); Oxyhemoglobin 88.5 % THb (90.0-100.0); PCO2 ABG 34.2 mmHg (35.0-45.0); PO2 ABG 54.8 mmHg (80.0-100.0); PO2 FiO2 Ratio Arterial Blood 1.71 %; Total Hemoglobin 13.9 g/dL (12.0-18.0); pH ABG 7.432 (7.350-7.450)
[2021-09-13 11:51] LABS: Lactic Acid Reflex 1.6 mmol/L (0.7-2.0)
[2021-09-13 11:51] LABS: Device NASAL CANNULA; Modified Allen's Test Pass; Site Drawn RIGHT RADIAL
[2021-09-13 11:54] LABS: Alanine Aminotransferase 35 U/L (6-50); Albumin Level 4.8 g/dL (3.5-5.1); Alkaline Phosphatase 96 U/L (38-126); Anion Gap 12 mmol/L (8-16); Aspartate Amino Transferase 43 U/L (17-59); Blood Urea Nitrogen 32 mg/dL (9-20); Calcium 9.7 mg/dL (8.4-10.2); Carbon Dioxide 26 mmol/L (22-30); Chloride 109 mmol/L (98-107); Estimated CRCL calculation 65 ml/min; Estimated Glomerular Filt Rate > 60; Glucose 139 mg/dL (65-110); Potassium 4.4 mmol/L (3.4-5.0); Sodium 147 mmol/L (137-145)
[2021-09-13] MEDS: SODIUM CHLORIDE 0.9% IV 1,000 ML 999 ML IV CONT (12:00)
[2021-09-13] MEDS: LORazepam INJ (*CRX) 2 MG/ML VIAL (12:15)
[2021-09-13] MEDS: RAPID SEQUENCE INTUBATION KIT 1 EACH (12:20)
[2021-09-13] MEDS: PROPOFOL IV EMULSION 100 ML 2.7 MG IV CONT (12:27)
[2021-09-13 12:43] LABS: Magnesium 2.5 mg/dL (1.6-2.3); Phosphorus 4.8 mg/dL (2.5-4.5)
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
[2021-09-13] MEDS: levETIRAcetam 1000MG/NACL100ML 1,000 MG/100 ML BAG 400 MG IVPB ×2 (14:53→20:19)
[2021-09-13 15:15] LABS: Troponin I 0.057 ng/mL (0.000-0.034)
--- NOTE | 2021-09-13 16:40 | PC.NURSE ---
This patient, Gopi Hoskins, was admitted to Intensive Care Unit-9. Patient/family oriented to hospital policies and general routines including ID bracelet, bed and alarms, visiting hours, pain management, procedures, bathroom and other care routines, personal items, smoking policy, room service/diet, and visiting hours. Information on how to activate the Rapid Response Team has been discussed. Patient/Family are encouraged to report perceived risks to care and to ask questions if they do not understand what they are told or what they should do.
[2021-09-13] MEDS: SODIUM CHLORIDE 0.9% IV 1,000 ML 125 ML IV CONT (18:11)
[2021-09-13] MEDS: methylPREDNISolone SOD SUCC 125 MG VIAL 60 MG IV PUSH (18:12)
[2021-09-13 18:26] LABS: Troponin I 0.057 ng/mL (0.000-0.034)
[2021-09-13 18:30] LABS: Alveolar/Arterial O2 Gradient 207.7 mmHg; Base Excess ABG -0.7 mEq/l (+/-2.0); Fractional Inspired Oxygen 50 %; HCO3 ABG 23.1 mEq/l (22.0-26.0); Oxygen Content ABG 17.6 %vol (16.0-22.0); Oxygen Saturation ABG 98.2 % (95.0-100.0); Oxyhemoglobin 97.1 % THb (90.0-100.0); PCO2 ABG 35.2 mmHg (35.0-45.0); PO2 ABG 109.2 mmHg (80.0-100.0); PO2 FiO2 Ratio Arterial Blood 2.18 %; Total Hemoglobin 12.8 g/dL (12.0-18.0); pH ABG 7.434 (7.350-7.450)
[2021-09-13 18:31] LABS: Device VENTILATOR; Modified Allen's Test Pass; Site Drawn LEFT RADIAL
[2021-09-13 18:32] LABS: Arterial Blood Gas PEEP 5 cmH2O; Arterial Blood Gas Tidal Volume 500 ml; Arterial Blood Gas Vent Mode ASSIST CONTROL; Arterial Blood Gas Ventilator rate 16 /MIN
[2021-09-13 20:51] LABS: Troponin I 0.058 ng/mL (0.000-0.034)
[2021-09-13 21:26] LABS: INR 1.2; Prothrombin Time 14.9 Seconds (11.1-14.7)
[2021-09-13] MEDS: DEXTROSE 5%/0.45% SOD CHL 1,000 ML 100 ML IV CONT (21:39)
[2021-09-13] MEDS: REMDESIVIR 200 MG/NS 250 ML 200 MG/250 ML BAG 250 MG IVPB (21:40)
[2021-09-13] MEDS: PANTOPRAZOLE SODIUM IV 40 MG VIAL IV PUSH (21:40)
--- NOTE | 2021-09-13 21:48 | PC.NURSE ---
AT 1210 SPO2 DROPPED INTO 60'S 1212 PT STARTED SEIZING. SEIZURE WITNESSED BY THIS NURSE AND DR. JOHANSEN, 1214 PT BECAME PULSELESS AND APNEIC AND CHEST COMPRESSIONS STARTED. 1215 RADIAL PULSE PALPATED AND HR 134 ON MONITOR. 1215 ATIVAN 2MG GIVEN. 1220 30MG ETOMIDATE GIVEN BY [facility], 1220 1OOMG SUCCS GIVEN BY [facility]. 1221 7.5 ETT PLACED 25 AT LIP, BILAT BREATH SOUNDS NOTED. 1224 16F TEMP PROBE ARRIAGA PLACED. 1227 PROPROFOL AT 5MCG/KG STARTED
--- NOTE | 2021-09-13 23:57 | PC.NURSE ---
Patient very awake and pulling up on restraints to pull ETT. I asked him if he was trying to take the ETT out and he nodded yes. I increased the propofol and tightened his restraints for his safety.
[2021-09-14] VITALS (32 sets, daily range): BP systolic 93–135; BP diastolic 60–84; PULSE 50–86; RESP 16–21; TEMP 36.8–38.1; O2SAT 100; BMI 27.3
--- NOTE | 2021-09-14 00:58 | PC.NURSE ---
Patient given bath with warm soapy water. His skin turned red, on his left arm and torso, and the redness stayed for approximately 20 minutes. I stopped using the soap and water immediately after it turned red then used the bath wipes and his skin tolerated that very well, no redness noted. His blood pressure cuff was removed for an hour then replaced and his pulse ox moved. Patient coccyx is intact and the bed is set for rotation to protect his skin.
[2021-09-14 04:59] LABS: Basophils Percent Auto 0.1 % (0.2-1.2); Hematocrit 34.1 % (42.0-52.0); Hemoglobin 11.4 g/dL (14.0-18.0); Immature Granulocyte Absolute 0.05 K/mm3 (0.00-0.031); Immature Granulocyte Percent A 0.4 % (0-0.5); Lymphocytes Absolute Auto 1.09 K/mm3 (0.9-3.2); Lymphocytes Percent Auto 7.9 % (18.3-44.2); Mean Corpuscular HGB Conc 33.4 g/dl (32-36); Mean Corpuscular Hemoglobin 29.9 pg (26-34); Mean Corpuscular Volume 89.5 fl (80-100); Monocytes Absolute Auto 0.9 K/mm3 (0.1-0.6); Monocytes Percent Auto 6.3 % (2.6-8.5); Neutrophils Absolute Auto 11.7 K/mm3 (1.3-6.7); Neutrophils Percent Auto 85.3 % (45.5-73.1); Platelet Count Result 288 k/mm3 (150-375); Red Blood Count 3.81 M/mm3 (4.6-6.20); Red Cell Distribution Width 13.4 % (11.5-14.5); White Blood Count 13.7 K/mm3 (4.5-10.0)
[2021-09-14 05:04] LABS: Alanine Aminotransferase 25 U/L (6-50); Albumin Level 3.6 g/dL (3.5-5.1); Alkaline Phosphatase 65 U/L (38-126); Anion Gap 6 mmol/L (8-16); Aspartate Amino Transferase 28 U/L (17-59); Bilirubin,Total 0.3 mg/dL (0.2-1.3); Blood Urea Nitrogen 41 mg/dL (9-20); Calcium 8.7 mg/dL (8.4-10.2); Carbon Dioxide 25 mmol/L (22-30); Chloride 111 mmol/L (98-107); Estimated CRCL calculation 65 ml/min; Estimated Glomerular Filt Rate > 60; Glucose 165 mg/dL (65-110); Magnesium 2.6 mg/dL (1.6-2.3); Sodium 142 mmol/L (137-145)
[2021-09-14 05:11] LABS: INR 1.2; Prothrombin Time 14.8 Seconds (11.1-14.7)
[2021-09-14 05:27] LABS: Alveolar/Arterial O2 Gradient 131.1 mmHg; Base Excess ABG -1.4 mEq/l (+/-2.0); Fractional Inspired Oxygen 40 %; HCO3 ABG 22.9 mEq/l (22.0-26.0); Oxygen Content ABG 16.2 %vol (16.0-22.0); Oxygen Saturation ABG 98.1 % (95.0-100.0); Oxyhemoglobin 96.9 % THb (90.0-100.0); PCO2 ABG 37.2 mmHg (35.0-45.0); PO2 ABG 111.3 mmHg (80.0-100.0); PO2 FiO2 Ratio Arterial Blood 2.78 %; Total Hemoglobin 11.8 g/dL (12.0-18.0); pH ABG 7.408 (7.350-7.450)
[2021-09-14 05:32] LABS: Device VENTILATOR; Modified Allen's Test Pass; Site Drawn RIGHT RADIAL
[2021-09-14 05:33] LABS: Arterial Blood Gas PEEP 5 cmH2O; Arterial Blood Gas Tidal Volume 500 ml; Arterial Blood Gas Vent Mode CMV; Arterial Blood Gas Ventilator rate 16 /MIN
[2021-09-14] MEDS: DEXTROSE 5%/0.45% SOD CHL 1,000 ML 100 ML IV CONT ×2 (07:45→18:17)
[2021-09-14] MEDS: clonazePAM (*CRX) 0.5 MG TABLET 1 MG PO ×3 (08:20→17:46)
[2021-09-14] MEDS: LACTATED RINGERS 500 ML 999 ML IV CONT (08:20)
[2021-09-14] MEDS: DIVALPROEX SODIUM ER 250 MG TAB.24H PO (08:21)
[2021-09-14] MEDS: PROPOFOL IV EMULSION 100 ML 8.71 MG IV CONT (08:25)
--- NOTE | 2021-09-14 08:39 | WPDCNINT ---
Assessment and Plan Assessment and plan (1) Cardiac arrest: Code(s): I46.9 - Cardiac arrest, cause unspecified Status: Acute Assessment and Plan: Cardiac arrest likely related to seizure activity from possible benzodiazepine withdrawal, could also be related to hypoxia -ROSC after 1 round of compressions -patient does follow commands post cardiac arrest -troponins elevated but flat, -will obtain echocardiogram -cardiology following the patient -09/13/2021 CT head: Normal aging brain with mild age-appropriate diffuse cerebral volume loss, no acute intracranial process (2) Acute respiratory failure with hypoxia: Code(s): J96.01 - Acute respiratory failure with hypoxia Status: Acute Assessment and Plan: Acute respiratory failure secondary cardiac arrest, also patient was hypoxic prior to the cardiac arrest could be related pneumonia, COVID-19 -intubated on 09/13/2021 -chest x-ray and ABGs reviewed -continue CMV mode of ventilation, peep of 5, 40% FiO2 -sedated with propofol, maintain RASS 0 to -2 -will add bronchodilators -patient was started on imipenem for possible aspiration pneumonia, has thick greenish yellow secretions, will add vancomycin 09/13/2021: CTA chest: No pulmonary embolism, patchy airspace opacities of the lower lobes consistent with pneumonia (3) COVID-19: Code(s): U07.1 - COVID-19 Status: Acute Assessment and Plan: Patient was awaiting placement for psych facility and had to be checked for COVID-19 which turned out to be positive, at that time he was asymptomatic. -now that he is intubated 2nd hypoxia in the ER -started on remdesivir and dexamethasone (4) Seizure: Code(s): R56.9 - Unspecified convulsions Status: Acute Assessment and Plan: Patient had seizure activity which could be related to benzodiazepine withdrawal -currently on Keppra IV -neurology has been consulted (5) Pneumonia: Code(s): J18.9 - Pneumonia, unspecified organism Status: Acute Assessment and Plan: As above (6) Psychiatric illness: Code(s): F99 - Mental disorder, not otherwise specified Status: Acute Assessment and Plan: Continue Klonopin Additional Plan DVT prophylaxis: Enoxaparin Stress ulcer prophylaxis: Protonix Nutrition: start tube feeds Code status: Full code Critical care time spent: 48 minutes This dictation may have been done utilizing a voice recognition system. Attempts have been made to correct errors. However, there may be uncorrected grammatical, spelling, and recognition errors present. Due to a high probability of clinically significant, life threatening deterioration, the patient required my highest level of preparedness to intervene emergently and I personally spent this critical care time directly and personally managing the patient. This critical care time included obtaining a history; examining the patient; pulse oximetry; ordering and review of studies; arranging urgent treatment with development of a management plan; evaluation of patient's response to treatment; frequent reassessment; and discussions with other providers. It was exclusive of separately billable procedures and treating other patients and teaching time. Please see Assessment and Plan section and the rest of the note for further information on patient assessment and treatment [facility] Consult Note Consult date: 09/14/21 Reason for consult: Cardiac arrest, acute respiratory failure, pneumonia, possible aspiration HPI: Gopi Hoskins is a 61 year old male with past medical history of anxiety, depression, schizophrenia, essential hypertension presented the ED on 09/11/2021 for psychiatric evaluation. Patient in the ER for around 48 hours and was waiting for placement ordered psych facility. On 09/13/2021 he was found to have shortness of breath with hypoxia and the ER physician was planning to intubate the patient when he had an ep
[2021-09-14] MEDS: levETIRAcetam 1000MG/NACL100ML 1,000 MG/100 ML BAG 400 MG IVPB ×2 (08:57→20:09)
[2021-09-14] MEDS: MINERAL OIL/WHITE PETROLATUM OINTMENT 1 APPLIC EACH EYE ×2 (08:58→20:10)
[2021-09-14] MEDS: ENOXAPARIN 40 MG/0.4 ML SYRINGE SUB-Q (10:03)
[2021-09-14] MEDS: PANTOPRAZOLE SODIUM IV 40 MG VIAL IV PUSH (10:03)
[2021-09-14] MEDS: IPRATROPIUM BR 0.02% INH SOLN 0.5 MG/2.5 ML VIAL INHALATION ×3 (10:30→20:14)
[2021-09-14] MEDS: ALBUTEROL SULFATE NEB 2.5 MG/3 ML INH 5 MG INHALATION ×3 (10:30→20:14)
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
[2021-09-14 11:56] LABS: Appearance Urine Clear (Clear); Bilirubin Urine 1+ (Negative); Blood Urine Negative (Negative); Color Urine Yellow (Yellow); Glucose Urine UA Negative (Negative); Ketones Urine Negative (Negative); Leukocyte Esterase Ur Negative LEU/UL (Negative); Nitrate Urine Negative (Negative); Protein Urine 1+ mg/dL (Negative); Specific Grav Ur >= 1.030 (1.001-1.035); pH Urine 5.5 (5.0-9.0)
[2021-09-14 12:01] LABS: Add Urine Microscopic? YES; Bacteria Urine Trace /hpf; Mucus Urine Few /lpf; Squamous Epithelial Cell Urine Rare /hpf (Few)
[2021-09-14] MEDS: DORNASE ALFA INH SOLN 1 MG/ML 2.5 ML AMP 2.5 MG INHALATION ×2 (14:27→23:37)
--- NOTE | 2021-09-14 20:27 | ECHO_ITS ---
Patient Info Name: Gopi Hoskins Age: 61 years : 1960 Gender: Male Ht: 74 in Wt: 198 lbs BSA: 2.17 m2 HR: 92 bpm BP: 124 / 84 mmHg Heart Rhythm: Sinus Rhythm Exam Date: 09/14/2021 8:05 AM Exam Location: [facility] Pulmonary Patient Status: Inpatient Admit Date: 09/13/2021 Staff Ordering Physician: Alice Simmons PA-C Fitter Hand: Chon Dunlap RDCS, RT Attending Provider: David France MD Referring Physician: Iris GORDON; Exam Type: CA echo doppler color flow Study Info Indications J96.00 - Acute respiratory failure, unspecified whether with hypoxia or hypercapnia Complete two-dimensional, color flow and Doppler transthoracic echocardiogram is performed. Summary 1. Complete two-dimensional, color flow and Doppler transthoracic echocardiogram is performed. 2. Left ventricular chamber dimension is normal. 3. Left ventricular systolic function is hyperdynamic, estimated at >70%. 4. Right ventricular chamber dimension is normal. 5. There is mild aortic valve sclerosis. 6. The mitral valve annulus is moderately calcified. Left Ventricle Left ventricular chamber dimension is normal. Left ventricular systolic function is hyperdynamic, estimated at >70%. The left ventricular diastolic function is grade I diastolic dysfunction. Right Ventricle Right ventricular chamber dimension is normal. Left Atria Left atrial chamber dimension is normal. Right Atria Right atrial chamber dimension is normal. Aortic Valve The aortic valve is trileaflet. There is mild aortic valve sclerosis. Pulmonic Valve The pulmonic valve is normal. Mitral Valve The mitral valve has normal leaflets. The mitral valve annulus is moderately calcified. Tricuspid Valve The tricuspid valve leaflets are normal. Pericardium/Pleural The pericardium appears normal. Aorta The aortic root size at the sinus of Valsalva is normal. Left Ventricular Outflow Tract Name Value Normal LVOT 2D LVOT Diameter 2.0 cm LVOT Doppler LVOT Peak Gradient 13 mmHg LVOT Mean Gradient 7 mmHg LVOT VTI 32 cm LVOT VTI/AV VTI Ratio 0.9 LVOT Stroke Volume 96 ml LVOT CO 8.2 l/min LVOT CI 3.8 l/min/m2 Mitral Valve Name Value Normal MV Doppler MV Decel Barber 381 cm/s2 MV PHT 65 ms MV Area (PHT) 3.4 cm2 4.0-5.0 MV Diastolic Function MV E Peak Velocity 85 cm/s MV A Peak Velocity 140 cm/s MV E/A 0.6
[2021-09-14] MEDS: REMDESIVIR 100 MG/NS 250 ML 100 MG/250 ML BAG 250 MG IVPB (21:46)
[2021-09-15] VITALS (32 sets, daily range): BP systolic 101–156; BP diastolic 58–94; PULSE 56–101; RESP 14–29; TEMP 36.4–37.7; O2SAT 96–100
[2021-09-15] MEDS: IPRATROPIUM BR 0.02% INH SOLN 0.5 MG/2.5 ML VIAL INHALATION ×4 (02:34→21:35)
[2021-09-15] MEDS: ALBUTEROL SULFATE NEB 2.5 MG/3 ML INH 5 MG INHALATION ×4 (02:34→21:35)
[2021-09-15] MEDS: DEXTROSE 5%/0.45% SOD CHL 1,000 ML 100 ML IV CONT (04:13)
[2021-09-15 04:31] LABS: Basophils Percent Auto 0.2 % (0.2-1.2); Eosinophils Absolute Auto 0.1 K/mm3 (0-0.3); Eosinophils Percent Auto 0.5 % (0-4.4); Hematocrit 30.3 % (42.0-52.0); Hemoglobin 10.1 g/dL (14.0-18.0); Immature Granulocyte Absolute 0.05 K/mm3 (0.00-0.031); Immature Granulocyte Percent A 0.4 % (0-0.5); Lymphocytes Absolute Auto 2.07 K/mm3 (0.9-3.2); Lymphocytes Percent Auto 15.8 % (18.3-44.2); Mean Corpuscular HGB Conc 33.3 g/dl (32-36); Mean Corpuscular Hemoglobin 29.5 pg (26-34); Mean Corpuscular Volume 88.6 fl (80-100); Mean Platelet Volume 10.8 fl (7.4-10.4); Monocytes Percent Auto 7.8 % (2.6-8.5); Neutrophils Absolute Auto 9.8 K/mm3 (1.3-6.7); Neutrophils Percent Auto 75.3 % (45.5-73.1); Platelet Count Result 217 k/mm3 (150-375); Red Blood Count 3.42 M/mm3 (4.6-6.20); Red Cell Distribution Width 13.3 % (11.5-14.5); White Blood Count 13.1 K/mm3 (4.5-10.0)
[2021-09-15 04:42] LABS: Alanine Aminotransferase 20 U/L (6-50); Albumin Level 3.3 g/dL (3.5-5.1); Alkaline Phosphatase 61 U/L (38-126); Anion Gap 5 mmol/L (8-16); Aspartate Amino Transferase 21 U/L (17-59); Bilirubin,Total 0.3 mg/dL (0.2-1.3); Blood Urea Nitrogen 39 mg/dL (9-20); Calcium 8.5 mg/dL (8.4-10.2); Carbon Dioxide 26 mmol/L (22-30); Chloride 110 mmol/L (98-107); Estimated CRCL calculation 78 ml/min; Estimated Glomerular Filt Rate > 60; Glucose 133 mg/dL (65-110); INR 1.4; Magnesium 2.3 mg/dL (1.6-2.3); Phosphorus 3.2 mg/dL (2.5-4.5); Potassium 3.7 mmol/L (3.4-5.0); Prothrombin Time 16.4 Seconds (11.1-14.7); Sodium 141 mmol/L (137-145)
[2021-09-15 05:32] LABS: Alveolar/Arterial O2 Gradient 45.6 mmHg; Base Excess ABG -2.9 mEq/l (+/-2.0); Carboxyhemoglobin 0.2 % THb (0-2.0); Device VENTILATOR; Fractional Inspired Oxygen 30 %; HCO3 ABG 21.2 mEq/l (22.0-26.0); Methemoglobin ABG 0.3 %THb (0-1.5); Modified Allen's Test Pass; Oxygen Content ABG 14.1 %vol (16.0-22.0); Oxygen Saturation ABG 98.6 % (95.0-100.0); Oxyhemoglobin 96.8 % THb (90.0-100.0); PCO2 ABG 34.1 mmHg (35.0-45.0); PO2 ABG 128.2 mmHg (80.0-100.0); PO2 FiO2 Ratio Arterial Blood 4.27 %; Reduced Hemoglobin 2.7 %THb (0-5.0); Site Drawn LEFT RADIAL; Total Hemoglobin 10.2 g/dL (12.0-18.0); pH ABG 7.411 (7.350-7.450)
[2021-09-15 05:33] LABS: Arterial Blood Gas PEEP 5 cmH2O; Arterial Blood Gas Tidal Volume 500 ml; Arterial Blood Gas Vent Mode CMV; Arterial Blood Gas Ventilator rate 16 /MIN
[2021-09-15] MEDS: PROPOFOL IV EMULSION 100 ML 2.9 MG IV CONT (06:17)
[2021-09-15] MEDS: dexmedeTOMIDine 400 MCG/100 ML 400 MCG/100 ML BAG 5.01 MCG IV CONT (07:55)
[2021-09-15] MEDS: DIVALPROEX SODIUM ER 250 MG TAB.24H PO (07:59)
[2021-09-15] MEDS: ENOXAPARIN 40 MG/0.4 ML SYRINGE SUB-Q (08:26)
[2021-09-15] MEDS: PANTOPRAZOLE SODIUM IV 40 MG VIAL IV PUSH (08:27)
[2021-09-15] MEDS: MINERAL OIL/WHITE PETROLATUM OINTMENT 1 APPLIC EACH EYE (08:30)
[2021-09-15] MEDS: levETIRAcetam 1000MG/NACL100ML 1,000 MG/100 ML BAG 400 MG IVPB ×2 (08:58→20:59)
[2021-09-15] MEDS: clonazePAM (*CRX) 0.5 MG TABLET 1 MG PO ×3 (08:59→16:57)
[2021-09-15] MEDS: DORNASE ALFA INH SOLN 1 MG/ML 2.5 ML AMP 2.5 MG INHALATION ×2 (09:19→21:35)
--- NOTE | 2021-09-15 09:30 | WPDINTPN ---
Progress Note: A&P Assessment and Plan (1) Cardiac arrest: Code(s): I46.9 - Cardiac arrest, cause unspecified Status: Acute Assessment and Plan: Cardiac arrest likely related to seizure activity from possible benzodiazepine withdrawal, could also be related to hypoxia -ROSC after 1 round of compressions -patient does follow commands post cardiac arrest -troponins elevated but flat, -will obtain echocardiogram -cardiology following the patient -09/13/2021 CT head: Normal aging brain with mild age-appropriate diffuse cerebral volume loss, no acute intracranial process (2) Acute respiratory failure with hypoxia: Code(s): J96.01 - Acute respiratory failure with hypoxia Status: Acute Assessment and Plan: Acute respiratory failure secondary cardiac arrest, also patient was hypoxic prior to the cardiac arrest could be related pneumonia, COVID-19 -intubated on 09/13/2021 -chest x-ray and ABGs reviewed -continue CMV mode of ventilation, peep of 5, 30% FiO2 -sedated with propofol, maintain RASS 0 to -2 -will add bronchodilators -continue imipenem for possible aspiration pneumonia, has thick greenish yellow secretions, added vancomycin on 09/14/2021 09/13/2021: CTA chest: No pulmonary embolism, patchy airspace opacities of the lower lobes consistent with pneumonia (3) Pneumonia: Code(s): J18.9 - Pneumonia, unspecified organism Status: Acute Assessment and Plan: 09/14/2021: Sputum cultures growing gram-positive cocci and Gram-positive bacilli 09/14/2021: Blood cultures, preliminary report is negative x2 09/14/2021: Urine cultures pending Continue antibiotics as above (4) COVID-19: Code(s): U07.1 - COVID-19 Status: Acute Assessment and Plan: Patient was awaiting placement for psych facility and had to be checked for COVID-19 which turned out to be positive, at that time he was asymptomatic. -now that he is intubated 2nd hypoxia in the ER -continue remdesivir and dexamethasone (09/14/2021) (5) Seizure: Code(s): R56.9 - Unspecified convulsions Status: Acute Assessment and Plan: Patient had seizure activity which could be related to benzodiazepine withdrawal -currently on Keppra IV -continue divalproex (Depakote) -appreciate Neurology evaluation and recommendation (6) Psychiatric illness: Code(s): F99 - Mental disorder, not otherwise specified Status: Acute Assessment and Plan: Continue Klonopin, -added Risperdal Plan Wean sedation Started on Precedex -will place patient on SBT and evaluate for extubation Additional Plan DVT prophylaxis: Enoxaparin Stress ulcer prophylaxis: Protonix Nutrition: Hold tube feeds in anticipation of extubation Code status: Full code Critical care time spent: 34 minutes This dictation may have been done utilizing a voice recognition system. Attempts have been made to correct errors. However, there may be uncorrected grammatical, spelling, and recognition errors present. Due to a high probability of clinically significant, life threatening deterioration, the patient required my highest level of preparedness to intervene emergently and I personally spent this critical care time directly and personally managing the patient. This critical care time included obtaining a history; examining the patient; pulse oximetry; ordering and review of studies; arranging urgent treatment with development of a management plan; evaluation of patient's response to treatment; frequent reassessment; and discussions with other providers. It was exclusive of separately billable procedures and treating other patients and teaching time. Please see Assessment and Plan section and the rest of the note for further information on patient assessment and treatment Subjective Date/time seen: 09/15/21 09:30 Interval history: Reason for consult: Cardiac arrest, acute respiratory failure, pneumonia, possible aspirati
[2021-09-15] MEDS: risperiDONE 1 MG TABLET 2 MG PO ×2 (09:44→16:57)
--- NOTE | 2021-09-15 10:53 | PCFNICU ---
ICU Rounding Note: Pt current nutrition is Vital AF 1.2 at 70 ml/hr. Last recorded weight is 100.2 kg up from 96.8 kg on admit. Bowel Motility:No BM reported. Labs Reviewed: BUN 39, Mg 5.0, Alb 3.3,Hgb 10.1,Hct 30.3, PO4 5.0 Meds Noted:Keppra, Miralax, Lovenox, Vancomycin, Decadron, Atrovent,Risperdal, Precedex. Skin: WNL Additional Notes: Patient remains on mechanical vent. Propofol has been discontinued. Tube feeding on hold for breathing trial today. Miralax added today 2/2 to no BM. Agree with diet orders. Monitoring: Following daily in ICU rounds and reassessing every Friday and Friday..
[2021-09-15] MEDS: polyethylene glycoL 3350 17 GM POWD.PACK PO (11:20)
[2021-09-15 11:36] LABS: Glucose Point of Care 125 mg/dl (65-105)
--- NOTE | 2021-09-15 12:43 | PM.IMPN ---
Progress Note: A&P Assessment and Plan (1) Acute respiratory failure with hypoxia: Code(s): J96.01 - Acute respiratory failure with hypoxia Status: Acute Assessment and Plan: Etiology of his impending respiratory failure is not clear however was followed shortly by seizure activity which may have been playing a factor. Chest CTA showed patchy airspace opacities of the lower lobes which may very well be related to COVID I do not think that the infiltrates on imaging would have caused him to become so hypoxic. Plan to extubate and (2) Seizure: Code(s): R56.9 - Unspecified convulsions Status: Acute Assessment and Plan: Monitor (3) Cardiac arrest: Code(s): I46.9 - Cardiac arrest, cause unspecified Status: Acute Assessment and Plan: Post seizure a carotid pulse was not palpable and he received 1 round of chest compressions with return of spontaneous circulation. (4) Suicidal ideation: Code(s): R45.851 - Suicidal ideations Status: Acute Assessment and Plan: Patient reportedly told police officers on Friday that he had suicidal thoughts, reporting that he had thoughts of jumping in front of a car in order to harm himself. Crisis has recommended inpatient treatment as per HPI. (5) Hypernatremia: Code(s): E87.0 - Hyperosmolality and hypernatremia Status: Acute Assessment and Plan: Monitor (6) COVID-19: Code(s): U07.1 - COVID-19 Status: Acute Assessment and Plan: Asymptomatic on arrival though today he reportedly became short of breath and CTA of the chest shows pulmonary infiltrates. Due to oxygen requirement, he will be started on dexamethasone and remdesivir. (7) Pneumonia: Code(s): J18.9 - Pneumonia, unspecified organism Status: Acute Assessment and Plan: CTA of the chest today shows bilateral pulmonary infiltrates. May very well be related to COVID however given his seemingly sudden onset of respiratory distress and hypoxia, continue antibiotics for possible aspiration (8) Psychiatric illness: Code(s): F99 - Mental disorder, not otherwise specified Status: Acute Assessment and Plan: Continue benzodiazepines but hold other medications while on mechanical ventilation. Subjective Date/time seen: 09/15/21 12:43 Sedated and on the vent Plan to extubate today Patient is DNI, DNR Exam Narrative: General: Patient intubated and sedated in no acute distress HEENT: Pupils equal and reactive, sclerae is clear Neck: Supple, no cervical lymphadenopathy Respiratory: Coarse breath sounds at bases, otherwise clear, adequate air entry Cardiac: S1-S2 is normal, bradycardia Abdomen: Soft, nontender, nondistended, normoactive bowel sounds Extremities: No edema, Neuro: Intubated and on sedation. Patient does open his eyes to name, follows simple commands in all extremities Skin: Multiple bruises in different stages of healing on the chest and upper extremities, skin is otherwise warm dry Psych: unable to assess at this time Objective Data Vital Signs Vital Signs: Vital Signs - 24 hr 09/14/21 14:00 09/14/21 14:00 09/14/21 14:00 Temperature 98.9 F 98.9 F Pulse Rate 61 72 72 Respiratory Rate 16 19 Blood Pressure 108/67 108/67 Pulse Oximetry 100 100 Oxygen Delivery Fraction of Inspired Oxygen 09/14/21 14:28 09/14/21 14:29 09/14/21 14:29 Temperature Pulse Rate 61 57 L 74 Respiratory Rate 16 16 Blood Pressure Pulse Oximetry 100 Oxygen Delivery Mechanical Ventilation Fraction of Inspired Oxygen 40 09/14/21 14:00 09/14/21 14:45 09/14/21 16:00 Temperature 99.0 F Pulse Rate 72 57 L 62 Respiratory Rate 16 16 19 Blood Pressure 117/68 Pulse Oximetry 100 Oxygen Delivery Fraction of Inspired Oxygen 09/14/21 16:00 09/14/21 16:00 09/14/21 16:00 Temperature Pulse Rate 60 62 Respiratory Rate 1
[2021-09-15 13:34] LABS: Alveolar/Arterial O2 Gradient 75.8 mmHg; Base Excess ABG 0.9 mEq/l (+/-2.0); Fractional Inspired Oxygen 30 %; HCO3 ABG 24.7 mEq/l (22.0-26.0); Oxygen Content ABG 15.6 %vol (16.0-22.0); Oxygen Saturation ABG 97.6 % (95.0-100.0); Oxyhemoglobin 95.8 % THb (90.0-100.0); PCO2 ABG 36.4 mmHg (35.0-45.0); PO2 ABG 95.3 mmHg (80.0-100.0); PO2 FiO2 Ratio Arterial Blood 3.18 %; Total Hemoglobin 11.5 g/dL (12.0-18.0); pH ABG 7.449 (7.350-7.450)
[2021-09-15 13:39] LABS: Device VENTILATOR; Modified Allen's Test Pass; Site Drawn LEFT RADIAL
[2021-09-15 13:41] LABS: Arterial Blood Gas Vent Mode SPONTANEOUS
[2021-09-15 13:42] LABS: Arterial Blood Gas PEEP 5 cmH2O; Arterial Blood Gas Pressure Support 10 cmH2O
--- NOTE | 2021-09-15 14:55 | PC.NURSE ---
Extubated at 1434. Oral care provided prior to extubation. O2 at 2L applied via nasal cannula. Respiratory rate is mid 20's to 30. Shallow respirations, but in no distress. Able to clear secretions with weak cough. Following commands.
[2021-09-15 17:14] LABS: Glucose Point of Care 139 mg/dl (65-105)
[2021-09-15] MEDS: REMDESIVIR 100 MG/NS 250 ML 100 MG/250 ML BAG 250 MG IVPB (21:00)
[2021-09-16] VITALS (79 sets, daily range): BP systolic 80–201; BP diastolic 52–105; PULSE 58–105; RESP 12–50; TEMP 36.1–37.5; O2SAT 89–100
[2021-09-16] MEDS: IPRATROPIUM BR 0.02% INH SOLN 0.5 MG/2.5 ML VIAL INHALATION ×4 (02:30→19:59)
[2021-09-16] MEDS: ALBUTEROL SULFATE NEB 2.5 MG/3 ML INH 5 MG INHALATION ×4 (02:30→19:59)
[2021-09-16 05:10] LABS: Basophils Percent Auto 0.4 % (0.2-1.2); Eosinophils Absolute Auto 0.1 K/mm3 (0-0.3); Eosinophils Percent Auto 0.7 % (0-4.4); Hematocrit 31.6 % (42.0-52.0); Hemoglobin 10.7 g/dL (14.0-18.0); Immature Granulocyte Absolute 0.04 K/mm3 (0.00-0.031); Immature Granulocyte Percent A 0.4 % (0-0.5); Lymphocytes Absolute Auto 2.21 K/mm3 (0.9-3.2); Lymphocytes Percent Auto 20.9 % (18.3-44.2); Mean Corpuscular HGB Conc 33.9 g/dl (32-36); Mean Corpuscular Hemoglobin 29.6 pg (26-34); Mean Corpuscular Volume 87.5 fl (80-100); Mean Platelet Volume 11.7 fl (7.4-10.4); Monocytes Absolute Auto 0.8 K/mm3 (0.1-0.6); Monocytes Percent Auto 7.8 % (2.6-8.5); Neutrophils Absolute Auto 7.4 K/mm3 (1.3-6.7); Neutrophils Percent Auto 69.8 % (45.5-73.1); Platelet Count Result 229 k/mm3 (150-375); Red Blood Count 3.61 M/mm3 (4.6-6.20); Red Cell Distribution Width 13.3 % (11.5-14.5); White Blood Count 10.6 K/mm3 (4.5-10.0)
[2021-09-16 05:18] LABS: INR 1.3; Prothrombin Time 15.8 Seconds (11.1-14.7)
[2021-09-16 05:22] LABS: Alanine Aminotransferase 18 U/L (6-50); Albumin Level 3.3 g/dL (3.5-5.1); Alkaline Phosphatase 74 U/L (38-126); Anion Gap 7 mmol/L (8-16); Aspartate Amino Transferase 30 U/L (17-59); Bilirubin,Total 0.5 mg/dL (0.2-1.3); Blood Urea Nitrogen 32 mg/dL (9-20); Calcium 8.5 mg/dL (8.4-10.2); Carbon Dioxide 24 mmol/L (22-30); Chloride 111 mmol/L (98-107); Estimated CRCL calculation 78 ml/min; Estimated Glomerular Filt Rate > 60; Glucose 103 mg/dL (65-110); Magnesium 2.3 mg/dL (1.6-2.3); Potassium 3.7 mmol/L (3.4-5.0); Sodium 142 mmol/L (137-145)
[2021-09-16] MEDS: DORNASE ALFA INH SOLN 1 MG/ML 2.5 ML AMP 2.5 MG INHALATION ×2 (08:25→19:59)
[2021-09-16] MEDS: DIVALPROEX SODIUM ER 250 MG TAB.24H PO (08:59)
[2021-09-16] MEDS: risperiDONE 1 MG TABLET 2 MG PO ×2 (08:59→17:35)
[2021-09-16] MEDS: clonazePAM (*CRX) 0.5 MG TABLET 1 MG PO ×3 (09:00→17:35)
[2021-09-16] MEDS: PANTOPRAZOLE SODIUM IV 40 MG VIAL IV PUSH (09:01)
[2021-09-16] MEDS: ENOXAPARIN 40 MG/0.4 ML SYRINGE SUB-Q (09:01)
[2021-09-16] MEDS: levETIRAcetam 1000MG/NACL100ML 1,000 MG/100 ML BAG 400 MG IVPB ×2 (09:02→20:48)
[2021-09-16] MEDS: polyethylene glycoL 3350 17 GM POWD.PACK PO (09:08)
--- NOTE | 2021-09-16 11:15 | PM.IMPN ---
Progress Note: A&P Assessment and Plan (1) Acute respiratory failure with hypoxia: Code(s): J96.01 - Acute respiratory failure with hypoxia Status: Acute Assessment and Plan: Etiology of his impending respiratory failure is not clear however was followed shortly by seizure activity which may have been playing a factor. Chest CTA showed patchy airspace opacities of the lower lobes which may very well be related to COVID I do not think that the infiltrates on imaging would have caused him to become so hypoxic. Plan to extubate and (2) Seizure: Code(s): R56.9 - Unspecified convulsions Status: Acute Assessment and Plan: Monitor Neuro following patient. Continue anti seizure medication. Having some mild altered mental status. Question related issues or medication or ongoing seizure activity. Will defer to Neurology (3) Cardiac arrest: Code(s): I46.9 - Cardiac arrest, cause unspecified Status: Acute Assessment and Plan: Post seizure a carotid pulse was not palpable and he received 1 round of chest compressions with return of spontaneous circulation. (4) Suicidal ideation: Code(s): R45.851 - Suicidal ideations Status: Acute Assessment and Plan: Patient has a sitter Will need evaluation prior to discharge (5) COVID-19: Code(s): U07.1 - COVID-19 Status: Acute Assessment and Plan: Continue dexamethasone and Remdesivir (6) Pneumonia: Code(s): J18.9 - Pneumonia, unspecified organism Status: Acute Assessment and Plan: Likely secondary to COVID. (7) Psychiatric illness: Code(s): F99 - Mental disorder, not otherwise specified Status: Acute Assessment and Plan: Continue psych meds (8) Weakness: Code(s): R53.1 - Weakness Status: Acute Assessment and Plan: PT/OT Additional Plan DVT prophylaxis: Enoxaparin Stress ulcer prophylaxis: Protonix Nutrition: Hold tube feeds in anticipation of extubation Code status: Full code Critical care time spent: 34 minutes This dictation may have been done utilizing a voice recognition system. Attempts have been made to correct errors. However, there may be uncorrected grammatical, spelling, and recognition errors present. Due to a high probability of clinically significant, life threatening deterioration, the patient required my highest level of preparedness to intervene emergently and I personally spent this critical care time directly and personally managing the patient. This critical care time included obtaining a history; examining the patient; pulse oximetry; ordering and review of studies; arranging urgent treatment with development of a management plan; evaluation of patient's response to treatment; frequent reassessment; and discussions with other providers. It was exclusive of separately billable procedures and treating other patients and teaching time. Please see Assessment and Plan section and the rest of the note for further information on patient assessment and treatment Subjective Date/time seen: 09/16/21 11:15 Patient is extubated Very lethargic. Exam Narrative: General: Patient intubated and sedated in no acute distress HEENT: Pupils equal and reactive, sclerae is clear Neck: Supple, no cervical lymphadenopathy Respiratory: Coarse breath sounds at bases, otherwise clear, adequate air entry Cardiac: S1-S2 is normal, bradycardia Abdomen: Soft, nontender, nondistended, normoactive bowel sounds Extremities: No edema, Neuro: Intubated and on sedation. Patient does open his eyes to name, follows simple commands in all extremities Skin: Multiple bruises in different stages of healing on the chest and upper extremities, skin is otherwise warm dry Psych: unable to assess at this time Objective Data Vital Signs Vital Signs: Vital Signs - 24 hr 09/15/21 11:38 09/15/21 12:00 09/15/21 12
--- NOTE | 2021-09-16 12:45 | WPDINTPN ---
Progress Note: A&P Assessment and Plan (1) Cardiac arrest: Code(s): I46.9 - Cardiac arrest, cause unspecified Status: Acute Assessment and Plan: Cardiac arrest likely related to seizure activity from possible benzodiazepine withdrawal, could also be related to hypoxia -ROSC after 1 round of compressions -patient does follow commands post cardiac arrest -troponins elevated but flat, -will obtain echocardiogram -cardiology following the patient -09/13/2021 CT head: Normal aging brain with mild age-appropriate diffuse cerebral volume loss, no acute intracranial process (2) Acute respiratory failure with hypoxia: Code(s): J96.01 - Acute respiratory failure with hypoxia Status: Acute Assessment and Plan: Acute respiratory failure secondary cardiac arrest, also patient was hypoxic prior to the cardiac arrest could be related pneumonia, COVID-19 -intubated on 09/13/2021 -chest x-ray and ABGs reviewed -EXTUBATED on 09/15/2021: Patient was doing all day yesterday and through the night. This morning was on air and started desaturating in the morning, aspirin high-flow you can the after aortic tachypneic and was placed on BiPAP. -Precedex infusion started -continue bronchodilators -continue imipenem for possible aspiration pneumonia, has thick greenish yellow secretions, added vancomycin on 09/14/2021 09/13/2021: CTA chest: No pulmonary embolism, patchy airspace opacities of the lower lobes consistent with pneumonia (3) Pneumonia: Code(s): J18.9 - Pneumonia, unspecified organism Status: Acute Assessment and Plan: 09/14/2021: Sputum cultures normal oropharyngeal cortes 09/14/2021: Blood cultures, preliminary report is negative x2 09/14/2021: Urine cultures -no growth Continue antibiotics as above (4) COVID-19: Code(s): U07.1 - COVID-19 Status: Acute Assessment and Plan: Patient was awaiting placement for psych facility and had to be checked for COVID-19 which turned out to be positive, at that time he was asymptomatic. -now that he is intubated 2nd hypoxia in the ER -continue remdesivir and dexamethasone (09/14/2021) (5) Seizure: Code(s): R56.9 - Unspecified convulsions Status: Acute Assessment and Plan: Patient had seizure activity which could be related to benzodiazepine withdrawal -currently on Keppra IV -continue divalproex (Depakote) -appreciate Neurology evaluation and recommendation (6) Psychiatric illness: Code(s): F99 - Mental disorder, not otherwise specified Status: Acute Assessment and Plan: Continue Klonopin, -continue Risperdal Additional Plan DVT prophylaxis: Enoxaparin Stress ulcer prophylaxis: Protonix Nutrition: Hold tube feeds for now as patient on BiPAP, tachypneic Code status: Full code Critical care time spent: 37 minutes 09/16/2021: Discussed with Bridget Wolfe, patient's and POA, updated her with patient's respiratory deterioration, she is aware that patient i on a BiPAP and a Precedex infusion. She reiterated that the patient did not want to be intubated or have any CPR and that is why she made him a DNR. I did tell her that if the need arises for intubation artery has a respiratory arrest I would call her and she would be able to come and say her goodbyes. She agrees with the plan. She also stated that patient does have severe psychosis and he does have heavy breathing episodes that last about 20-40 minutes and sherri by themselves. This dictation may have been done utilizing a voice recognition system. Attempts have been made to correct errors. However, there may be uncorrected grammatical, spelling, and recognition errors present. Due to a high probability of clinically significant, life threatening deterioration, the patient required my highest level of preparedness to intervene emergently and I personally spent this critical care time directly and personally managing the patient. This c
[2021-09-16] MEDS: dexmedeTOMIDine 400 MCG/100 ML 400 MCG/100 ML BAG 7.52 MCG IV CONT (14:39)
--- NOTE | 2021-09-16 14:57 | PC.NURSE ---
Pt requested to utilize nasal cannula instead of bipap. verbal order from Dr. Lopez to trial patient on nasal cannula and place back on bipap if patient desaturates or experiences distress. placed on 2 L o2. tolerating well.
[2021-09-16 15:18] LABS: Vancomycin Trough 10.6 ug/mL (10.0-20.0)
[2021-09-16] MEDS: INSULIN ASPART (*BKC) 100 UNITS/ML SUB-Q (18:24)
[2021-09-16] MEDS: REMDESIVIR 100 MG/NS 250 ML 100 MG/250 ML BAG 250 MG IVPB (22:00)
[2021-09-16 23:42] LABS: Pneumococcal Antigen Urine Not Detected (Not Detected)
[2021-09-17] VITALS (26 sets, daily range): BP systolic 91–189; BP diastolic 54–93; PULSE 47–98; RESP 18–48; TEMP 36.8–37.7; O2SAT 92–100; BMI 11.0
[2021-09-17] MEDS: dexmedeTOMIDine 400 MCG/100 ML 400 MCG/100 ML BAG 7.52 MCG IV CONT (00:05)
[2021-09-17 04:31] LABS: Hematocrit 28.9 % (42.0-52.0); Hemoglobin 9.9 g/dL (14.0-18.0); Mean Corpuscular HGB Conc 34.3 g/dl (32-36); Mean Corpuscular Hemoglobin 29.6 pg (26-34); Mean Corpuscular Volume 86.3 fl (80-100); Mean Platelet Volume 11.1 fl (7.4-10.4); Platelet Count Result 200 k/mm3 (150-375); Red Blood Count 3.35 M/mm3 (4.6-6.20); Red Cell Distribution Width 13.1 % (11.5-14.5); White Blood Count 8.1 K/mm3 (4.5-10.0)
[2021-09-17 04:40] LABS: Alanine Aminotransferase 17 U/L (6-50); Anion Gap 4 mmol/L (8-16); Blood Urea Nitrogen 31 mg/dL (9-20); Calcium 8.7 mg/dL (8.4-10.2); Carbon Dioxide 27 mmol/L (22-30); Chloride 110 mmol/L (98-107); Estimated CRCL calculation 86 ml/min; Estimated Glomerular Filt Rate > 60; Glucose 109 mg/dL (65-110); Potassium 3.6 mmol/L (3.4-5.0); Sodium 141 mmol/L (137-145)
[2021-09-17 04:42] LABS: INR 1.3
[2021-09-17] MEDS: IPRATROPIUM BR 0.02% INH SOLN 0.5 MG/2.5 ML VIAL INHALATION ×2 (08:45→20:41)
[2021-09-17] MEDS: ALBUTEROL SULFATE NEB 2.5 MG/3 ML INH 5 MG INHALATION ×2 (08:45→20:41)
[2021-09-17] MEDS: DORNASE ALFA INH SOLN 1 MG/ML 2.5 ML AMP 2.5 MG INHALATION ×2 (08:45→20:42)
[2021-09-17] MEDS: clonazePAM (*CRX) 0.5 MG TABLET 1 MG PO ×3 (08:59→16:54)
[2021-09-17] MEDS: DIVALPROEX SODIUM ER 250 MG TAB.24H PO (08:59)
[2021-09-17] MEDS: risperiDONE 1 MG TABLET 2 MG PO ×2 (09:00→16:54)
[2021-09-17] MEDS: polyethylene glycoL 3350 17 GM POWD.PACK PO (09:00)
[2021-09-17] MEDS: ENOXAPARIN 40 MG/0.4 ML SYRINGE SUB-Q (09:02)
[2021-09-17] MEDS: PANTOPRAZOLE SODIUM IV 40 MG VIAL IV PUSH (09:07)
[2021-09-17] MEDS: levETIRAcetam 1000MG/NACL100ML 1,000 MG/100 ML BAG 400 MG IVPB ×2 (09:12→20:15)
--- NOTE | 2021-09-17 09:23 | WPDINTPN ---
Progress Note: A&P Assessment and Plan (1) Cardiac arrest: Code(s): I46.9 - Cardiac arrest, cause unspecified Status: Acute Assessment and Plan: Cardiac arrest likely related to seizure activity from possible benzodiazepine withdrawal, could also be related to hypoxia -ROSC after 1 round of compressions -patient does follow commands post cardiac arrest -troponins elevated but flat, -09/14/2021 echocardiogram: EF > 70%, RV chamber dimensions are normal, mild aortic valve sclerosis, -cardiology following the patient -09/13/2021 CT head: Normal aging brain with mild age-appropriate diffuse cerebral volume loss, no acute intracranial process (2) Acute respiratory failure with hypoxia: Code(s): J96.01 - Acute respiratory failure with hypoxia Status: Acute Assessment and Plan: Acute respiratory failure secondary cardiac arrest, also patient was hypoxic prior to the cardiac arrest could be related pneumonia, COVID-19 -intubated on 09/13/2021 -chest x-ray and ABGs reviewed -EXTUBATED on 09/15/2021: Patient was doing all day yesterday and through the night. -09/16/2021: In the morning on room air and started desaturating in the morning, aspirin high-flow you can the after aortic tachypneic and was placed on BiPAP. -09/17/2021, currently on room air -Precedex infusion started -continue bronchodilators -continue imipenem and vancomycin (09/14) for possible aspiration pneumonia, has thick greenish yellow secretions, 09/13/2021: CTA chest: No pulmonary embolism, patchy airspace opacities of the lower lobes consistent with pneumonia (3) Pneumonia: Code(s): J18.9 - Pneumonia, unspecified organism Status: Acute Assessment and Plan: 09/14/2021: Sputum cultures normal oropharyngeal cortes 09/14/2021: Blood cultures, preliminary report is negative x2 09/14/2021: Urine cultures -no growth Continue antibiotics as above (4) COVID-19: Code(s): U07.1 - COVID-19 Status: Acute Assessment and Plan: Patient was awaiting placement for psych facility and had to be checked for COVID-19 which turned out to be positive, at that time he was asymptomatic. -now that he is intubated 2nd hypoxia in the ER -continue remdesivir and dexamethasone (09/14/2021) (5) Seizure: Code(s): R56.9 - Unspecified convulsions Status: Acute Assessment and Plan: Patient had seizure activity which could be related to benzodiazepine withdrawal -currently on Keppra IV -continue divalproex (Depakote) -appreciate Neurology evaluation and recommendation (6) Psychiatric illness: Code(s): F99 - Mental disorder, not otherwise specified Status: Acute Assessment and Plan: Continue Klonopin, -continue Risperdal Plan Speech therapy for swallow evaluation Additional Plan DVT prophylaxis: Enoxaparin Stress ulcer prophylaxis: Protonix Nutrition: NG tube in place, may start tube feeds if he fails swallow evaluation Code status: Full code Critical care time spent: 33 minutes 09/16/2021: Discussed with Bridget Wolfe, patient's and POA, updated her with patient's respiratory deterioration, she is aware that patient i on a BiPAP and a Precedex infusion. She reiterated that the patient did not want to be intubated or have any CPR and that is why she made him a DNR. I did tell her that if the need arises for intubation artery has a respiratory arrest I would call her and she would be able to come and say her goodbyes. She agrees with the plan. She also stated that patient does have severe psychosis and he does have heavy breathing episodes that last about 20-40 minutes and sherri by themselves. This dictation may have been done utilizing a voice recognition system. Attempts have been made to correct errors. However, there may be uncorrected grammatical, spelling, and recognition errors present. Due to a high probability of clinically significant, life threatening deterior
--- NOTE | 2021-09-17 10:30 | PCSTNOTE ---
Please refer to the Bedside Swallow Evaluation in the EMR. Please note, silent aspiration cannot be ruled out at bedside.
[2021-09-17 12:16] LABS: Glucose Point of Care 225 mg/dl (65-105)
[2021-09-17] MEDS: INSULIN ASPART (*BKC) 100 UNITS/ML SUB-Q (12:16)
--- NOTE | 2021-09-17 13:17 | PM.IMPN ---
Progress Note: A&P Assessment and Plan (1) Acute respiratory failure with hypoxia: Code(s): J96.01 - Acute respiratory failure with hypoxia Status: Acute Assessment and Plan: Likely from underlying seizure. Patient is now extubated. On nasal cannula oxygen as needed. (2) Seizure: Code(s): R56.9 - Unspecified convulsions Status: Acute Assessment and Plan: Monitor Neuro following patient. Continue anti seizure medication. Mental status is improving. Still having significant weakness. Will have PT OT evaluate the patient. (3) Cardiac arrest: Code(s): I46.9 - Cardiac arrest, cause unspecified Status: Acute Assessment and Plan: Post seizure a carotid pulse was not palpable and he received 1 round of chest compressions with return of spontaneous circulation. No additional acute issues. (4) Suicidal ideation: Code(s): R45.851 - Suicidal ideations Status: Acute Assessment and Plan: Patient has a sitter Will need evaluation prior to discharge (5) COVID-19: Code(s): U07.1 - COVID-19 Status: Acute Assessment and Plan: Continue dexamethasone and Remdesivir Continue supportive oxygen as needed (6) Pneumonia: Code(s): J18.9 - Pneumonia, unspecified organism Status: Acute Assessment and Plan: Likely secondary to COVID. (7) Psychiatric illness: Code(s): F99 - Mental disorder, not otherwise specified Status: Acute Assessment and Plan: Continue psych meds (8) Weakness: Code(s): R53.1 - Weakness Status: Acute Assessment and Plan: PT/OT Speech therapy see the patient as well. Continue NG tube for now Additional Plan DVT prophylaxis: Enoxaparin Stress ulcer prophylaxis: Protonix Nutrition: Hold tube feeds in anticipation of extubation Code status: Full code Critical care time spent: 34 minutes This dictation may have been done utilizing a voice recognition system. Attempts have been made to correct errors. However, there may be uncorrected grammatical, spelling, and recognition errors present. Due to a high probability of clinically significant, life threatening deterioration, the patient required my highest level of preparedness to intervene emergently and I personally spent this critical care time directly and personally managing the patient. This critical care time included obtaining a history; examining the patient; pulse oximetry; ordering and review of studies; arranging urgent treatment with development of a management plan; evaluation of patient's response to treatment; frequent reassessment; and discussions with other providers. It was exclusive of separately billable procedures and treating other patients and teaching time. Please see Assessment and Plan section and the rest of the note for further information on patient assessment and treatment Subjective Date/time seen: 09/17/21 13:17 More alert today, answering questions appropriately. Still very weak unable to tolerate diet Exam Narrative: General: Patient in bed, in no distress HEENT: Pupils equal and reactive, sclerae is clear Neck: Supple, no cervical lymphadenopathy Respiratory: Clear to auscultation bilaterally, decreased at bases Cardiac: S1-S2 is normal, regular rate and rhythm Abdomen: Soft, nontender, nondistended, normoactive bowel sounds Extremities: No edema, Neuro: Patient does open his eyes to name, follows simple commands in all extremities Skin: Multiple bruises in different stages of healing on the chest and upper extremities, skin is otherwise warm dry Psych: Flat affect Objective Data Vital Signs Vital Signs: Vital Signs - 24 hr 09/16/21 13:52 09/16/21 14:00 09/16/21 14:00 Temperature 99.2 F 99.4 F Pulse Rate 93 95 95 Respiratory Rate 20 32 H Blood Pressure 179/95 H Pulse Oximetry 100 100 Oxygen Delivery Oxygen Flow Rate
--- NOTE | 2021-09-17 15:10 | WPDNEUROPN ---
Progress Note: A&P Assessment and Plan (1) Psychosis: Code(s): F29 - Unspecified psychosis not due to a substance or known physiological condition Status: Acute (2) Seizure: Code(s): R56.9 - Unspecified convulsions Status: Acute Plan ongoing history of seizure disorder in addition to the underlying psych problem but considering patient is taking clonazepam 1 mg 3 times a day and Depakote 750 mg per 24 hours no other anticonvulsants is being added while the other medical problems are being taken care Subjective Date/time seen: 09/17/21 15:10 Interval history: 61 years old with multiple medical problems in addition to underlying seizure disorder, and mental disorder for which he is taking multiple including clonazepam 1 mg 3 times a day, divalproex 750 mg daily in 2 divided doses, fluvoxamine 50 mg b.i.d., loxapine 100 mg b.i.d., and risperidone 2 mg twice a day, continues to have uncontrollable movements of the right side and remains intermittently confused but somewhat more alert today pertinent investigations include negative CT scan of the head, Review of Systems Review of Systems: All systems reviewed & are unremarkable except as noted in HPI and below Exam Narrative: remains in bed in no obvious acute distress, normocephalic, neck with no meningeal signs, lungs clear, heart regular, abdomen is soft nontender, neurologically awake disoriented does not follow the verbal commands appropriately, intermittent making sounds, continuously moving the right side, tone fairly normal, reflexes brisk, and plantar responses are downgoing, Objective Data Vital Signs Vital Signs: Vital Signs - 24 hr 09/16/21 15:11 09/16/21 16:00 09/16/21 16:00 Temperature 36.1 C L 37.3 C Pulse Rate 76 97 95 Respiratory Rate 12 32 H 19 Blood Pressure 80/52 L 164/91 H Pulse Oximetry 95 98 98 Oxygen Delivery Nasal Cannula Oxygen Flow Rate 2 09/16/21 16:33 09/16/21 16:00 09/16/21 17:00 Temperature 37.2 C Pulse Rate 97 67 Respiratory Rate 24 H Blood Pressure 132/69 Pulse Oximetry 98 98 Oxygen Delivery Nasal Cannula Oxygen Flow Rate 2 09/16/21 18:26 09/16/21 18:00 09/16/21 18:00 Temperature 37.4 C Pulse Rate 62 60 58 L Respiratory Rate 21 H 19 Blood Pressure 125/69 Pulse Oximetry 98 Oxygen Delivery Oxygen Flow Rate 09/16/21 20:00 09/16/21 20:12 09/16/21 20:15 Temperature 37.1 C Pulse Rate 88 83 Respiratory Rate 20 21 H Blood Pressure 190/90 H Pulse Oximetry 98 97 Oxygen Delivery Nasal Cannula Oxygen Flow Rate 2 09/16/21 20:00 09/16/21 20:00 09/16/21 20:30 Temperature Pulse Rate 88 84 82 Respiratory Rate 22 H 18 Blood Pressure Pulse Oximetry 96 Oxygen Delivery Nasal Cannula Oxygen Flow Rate 2 09/16/21 22:00 09/16/21 22:00 09/16/21 23:43 Temperature 37.1 C Pulse Rate 77 77 Respiratory Rate 22 H Blood Pressure 163/91 H Pulse Oximetry 95 97 Oxygen Delivery Nasal Cannula Oxygen Flow Rate 2 09/16/21 23:59 09/17/21 00:00 09/17/21 00:00 Temperature 37.2 C Pulse Rate 74 77 74 Respiratory Rate 22 H 22 H Blood Pressure 162/89 H Pulse Oximetry 95 96 Oxygen Delivery Nasal Cannula Oxygen Flow Rate 2 09/16/21 20:00 09/17/21 00:05 09/17/21 00:05 Temperature Pulse Rate 97 77 77 Respiratory Rate 22 H 22 H 22 H Blood Pressure Pulse Oximetry Oxygen Delivery Oxygen Flow Rate 09/17/21 02:17 09/17/21 02:00 09/17/21 02:00 Temperature 37.2 C Pulse Rate 55 L 55 L Respiratory Rate 22 H Blood Pressure 102/59 L Pulse Oximetry 95 95 Oxygen Delivery Nasal Cannula Oxygen Flow Rate 2 09/17/21 04:00 09/17/21 04:00 09/17/21 04:00 Temperature 36.9 C Pulse Rate 76 76 98 Respiratory Rate 20 20 Blood Pressure 160/90 H Pulse Oximetry 97 95 Oxygen Delivery Nasal Cannula Oxygen Flow Rate 2 09/17/21 06:00 09/17/21 06:00 09/17/21 07:25 Temperature 36.8 C Pulse R
--- NOTE | 2021-09-17 16:43 | PCRCNOTE ---
Window of time for administration has passed. See next scheduled administration.
[2021-09-17 17:06] LABS: Glucose Point of Care 128 mg/dl (65-105)
[2021-09-17] MEDS: REMDESIVIR 100 MG/NS 250 ML 100 MG/250 ML BAG 250 MG IVPB (21:03)
[2021-09-17 23:35] LABS: Glucose Point of Care 132 mg/dl (65-105)
[2021-09-17 23:55] LABS: Legionella pneumophila Ag Ur Not Detected (Not Detected)
[2021-09-18] VITALS (27 sets, daily range): BP systolic 80–184; BP diastolic 52–100; PULSE 62–109; RESP 18–40; TEMP 36.5–37.7; O2SAT 90–100
[2021-09-18] MEDS: hydrALAZINE HCL 20 MG/ML VIAL 10 MG IV PUSH ×2 (01:50→12:16)
[2021-09-18] MEDS: ALBUTEROL SULFATE NEB 2.5 MG/3 ML INH 5 MG INHALATION ×4 (02:22→20:14)
[2021-09-18] MEDS: IPRATROPIUM BR 0.02% INH SOLN 0.5 MG/2.5 ML VIAL INHALATION ×4 (02:22→20:14)
[2021-09-18] MEDS: dexmedeTOMIDine 400 MCG/100 ML 400 MCG/100 ML BAG IV CONT (07:37)
[2021-09-18] MEDS: DIVALPROEX SODIUM ER 250 MG TAB.24H PO (08:47)
[2021-09-18] MEDS: risperiDONE 1 MG TABLET 2 MG PO ×2 (08:47→17:34)
[2021-09-18] MEDS: clonazePAM (*CRX) 0.5 MG TABLET 1 MG PO ×3 (08:47→17:33)
[2021-09-18] MEDS: PANTOPRAZOLE SODIUM IV 40 MG VIAL IV PUSH (08:48)
[2021-09-18] MEDS: ENOXAPARIN 40 MG/0.4 ML SYRINGE SUB-Q (08:48)
[2021-09-18] MEDS: polyethylene glycoL 3350 17 GM POWD.PACK PO (08:49)
[2021-09-18] MEDS: levETIRAcetam 1000MG/NACL100ML 1,000 MG/100 ML BAG 400 MG IVPB ×2 (08:53→20:21)
[2021-09-18 09:14] LABS: Glucose Point of Care 107 mg/dl (65-105)
[2021-09-18] MEDS: DORNASE ALFA INH SOLN 1 MG/ML 2.5 ML AMP 2.5 MG INHALATION ×2 (09:24→20:14)
[2021-09-18] MEDS: ACETAMINOPHEN ELIXIR 325 MG/10.15 ML UDC 650 MG PO ×2 (11:32→17:34)
--- NOTE | 2021-09-18 11:49 | PCNFU ---
Nutrition Follow-Up Complete: Inadequate Oral Intake as related to mechanical vent as evidencec by NPO. Goal:Meet estimated nutritional needs. Pt is meeting current goal. Continue with same goal. Pt current nutrition is Vital 1.2 @ 70ml/hr over 22 hrs. Nutrition recommendation: Continue with current diet orders. Last recorded weight is 93.5 kg - down from 100kg, but noted admit wt of 96kg. Bowel Motility: no recorded BM, noted pt does have bowel sounds and is on miralax Labs Reviewed: Hgb:9.9, HCT:28.9, BUN:31, Glu:132 Meds Noted:Keppra, Miralax, Lovenox, Vancomycin, Decadron, Atrovent,Risperdal, Precedex. Skin: WNL Additional Notes: Pt remains on mechanical ventilation. Tube feedings running at goal rate, pt is tolerating well. Current Tube feed is meeting 85% of estimated caloric needs and 100% of protein needs. Agree with diet orders. Will monitor daily in ICU rounds and follow up every Friday and Friday.
--- NOTE | 2021-09-18 13:44 | PCOTNOTE ---
Attempted to see patient this pm. Unable to locate nurse at this time. Per patient sitter, patient was restless and agitated in am. Pt was in restraints and given medicine to stabilize. Pt sleeping soundly at this time and did not disturb for this reason.
--- NOTE | 2021-09-18 13:51 | PCPTNOTE ---
The patient treatment was not able to be completed on 09/18/2021 due to unstable heart rate. Per RN not to see patient today for therapy, patient's heart rate is unstable. Will plan to continue treatment per plan of care.
--- NOTE | 2021-09-18 13:53 | WPDINTPN ---
Progress Note: A&P Assessment and Plan (1) Encephalopathy: Code(s): G93.40 - Encephalopathy, unspecified Status: Acute Assessment and Plan: Waxing and waning mentation -currently on Precedex infusion at 0.1 to 0.2 mcg/kg/hr -this morning patient is more awake, alert, oriented x3 -he does episodes where he gets panic attacks with tachycardia, elevated blood pressures in tachypnea settles down -patient did fail his swallow evaluation on 09/17/2021 -currently on tube feeds via NG tube (2) Cardiac arrest: Code(s): I46.9 - Cardiac arrest, cause unspecified Status: Acute Assessment and Plan: Cardiac arrest likely related to seizure activity from possible benzodiazepine withdrawal, could also be related to hypoxia -ROSC after 1 round of compressions -patient does follow commands post cardiac arrest -troponins elevated but flat, -09/14/2021 echocardiogram: EF > 70%, RV chamber dimensions are normal, mild aortic valve sclerosis, -cardiology following the patient -09/13/2021 CT head: Normal aging brain with mild age-appropriate diffuse cerebral volume loss, no acute intracranial process (3) Acute respiratory failure with hypoxia: Code(s): J96.01 - Acute respiratory failure with hypoxia Status: Acute Assessment and Plan: Acute respiratory failure secondary cardiac arrest, also patient was hypoxic prior to the cardiac arrest could be related pneumonia, COVID-19 -intubated on 09/13/2021 -chest x-ray and ABGs reviewed -EXTUBATED on 09/15/2021: Patient was doing all day yesterday and through the night. -09/16/2021: In the morning on room air and started desaturating in the morning, aspirin high-flow you can the after aortic tachypneic and was placed on BiPAP. -09/17/2021, currently on room air -Precedex infusion started -continue bronchodilators -continue imipenem and vancomycin (09/14) for possible aspiration pneumonia, has thick greenish yellow secretions, will DC antibiotics given all cultures are negative 09/13/2021: CTA chest: No pulmonary embolism, patchy airspace opacities of the lower lobes consistent with pneumonia (4) Pneumonia: Code(s): J18.9 - Pneumonia, unspecified organism Status: Acute Assessment and Plan: 09/14/2021: Sputum cultures normal oropharyngeal cortes 09/14/2021: Blood cultures, preliminary report is negative x2 09/14/2021: Urine cultures -no growth Will discontinue antibiotics (5) COVID-19: Code(s): U07.1 - COVID-19 Status: Acute Assessment and Plan: Patient was awaiting placement for psych facility and had to be checked for COVID-19 which turned out to be positive, at that time he was asymptomatic. -now that he is intubated 2nd hypoxia in the ER -status post 5 days of remdesivir. Continue dexamethasone for a total of 10 days (09/14/2021) (6) Seizure: Code(s): R56.9 - Unspecified convulsions Status: Acute Assessment and Plan: Patient had seizure activity which could be related to benzodiazepine withdrawal -currently on Keppra IV -continue divalproex (Depakote) -appreciate Neurology evaluation and recommendation (7) Psychiatric illness: Code(s): F99 - Mental disorder, not otherwise specified Status: Acute Assessment and Plan: Continue Klonopin, -continue Risperdal Plan DC antibiotics, all cultures are negative, status post 5 days of antibiotics Additional Plan DVT prophylaxis: Enoxaparin Stress ulcer prophylaxis: Protonix Nutrition: Continue tube feeds Code status: DNR/DNI per Critical care time spent: 33 minutes 09/16/2021: Discussed with Bridget Wolfe, patient's and POA, updated her with patient's respiratory deterioration, she is aware that patient i on a BiPAP and a Precedex infusion. She reiterated that the patient did not want to be intubated or have any CPR and that is why she made him a DNR. I did tell her that if the need arises for intubation arter
[2021-09-18] MEDS: SODIUM CHLORIDE 0.9% IV 500 ML IV CONT (14:00)
[2021-09-18 17:55] LABS: Glucose Point of Care 155 mg/dl (65-105)
[2021-09-18 23:28] LABS: Glucose Point of Care 187 mg/dl (65-105)
[2021-09-19] VITALS (22 sets, daily range): BP systolic 73–179; BP diastolic 46–93; PULSE 54–111; RESP 14–35; TEMP 36.5–37.6; O2SAT 91–99
[2021-09-19] MEDS: IPRATROPIUM BR 0.02% INH SOLN 0.5 MG/2.5 ML VIAL INHALATION ×4 (02:07→20:24)
[2021-09-19] MEDS: ALBUTEROL SULFATE NEB 2.5 MG/3 ML INH 5 MG INHALATION ×4 (02:07→20:24)
[2021-09-19] MEDS: SODIUM CHLORIDE 0.9% IV 500 ML 999 ML (02:20)
--- NOTE | 2021-09-19 03:24 | PC.NURSE ---
0210 Dr. Koenig informed of decreased blood pressure. Orders received for 500ml bolus of NS
[2021-09-19 04:54] LABS: Basophils Absolute Auto 0.1 K/mm3 (0.0-0.1); Eosinophils Absolute Auto 0.1 K/mm3 (0-0.3); Eosinophils Percent Auto 1.3 % (0-4.4); Hematocrit 31.2 % (42.0-52.0); Hemoglobin 10.7 g/dL (14.0-18.0); Immature Granulocyte Absolute 0.04 K/mm3 (0.00-0.031); Immature Granulocyte Percent A 0.5 % (0-0.5); Lymphocytes Absolute Auto 1.79 K/mm3 (0.9-3.2); Lymphocytes Percent Auto 20.6 % (18.3-44.2); Mean Corpuscular HGB Conc 34.3 g/dl (32-36); Mean Corpuscular Hemoglobin 29.8 pg (26-34); Mean Corpuscular Volume 86.9 fl (80-100); Mean Platelet Volume 11.9 fl (7.4-10.4); Monocytes Absolute Auto 0.9 K/mm3 (0.1-0.6); Monocytes Percent Auto 10.8 % (2.6-8.5); Neutrophils Absolute Auto 5.7 K/mm3 (1.3-6.7); Neutrophils Percent Auto 65.8 % (45.5-73.1); Platelet Count Result 238 k/mm3 (150-375); Red Blood Count 3.59 M/mm3 (4.6-6.20); Red Cell Distribution Width 13.3 % (11.5-14.5); White Blood Count 8.7 K/mm3 (4.5-10.0)
[2021-09-19 05:05] LABS: Alanine Aminotransferase 34 U/L (6-50); Albumin Level 3.3 g/dL (3.5-5.1); Alkaline Phosphatase 65 U/L (38-126); Anion Gap 6 mmol/L (8-16); Aspartate Amino Transferase 33 U/L (17-59); Bilirubin,Total 0.6 mg/dL (0.2-1.3); Blood Urea Nitrogen 43 mg/dL (9-20); Calcium 8.5 mg/dL (8.4-10.2); Carbon Dioxide 25 mmol/L (22-30); Chloride 110 mmol/L (98-107); Estimated CRCL calculation 86 ml/min; Estimated Glomerular Filt Rate > 60; Glucose 116 mg/dL (65-110); Magnesium 2.4 mg/dL (1.6-2.3); Phosphorus 4.3 mg/dL (2.5-4.5); Potassium 3.6 mmol/L (3.4-5.0); Sodium 141 mmol/L (137-145)
[2021-09-19] MEDS: levETIRAcetam 1000MG/NACL100ML 1,000 MG/100 ML BAG 400 MG IVPB ×2 (09:27→20:55)
[2021-09-19] MEDS: clonazePAM (*CRX) 0.5 MG TABLET 1 MG PO ×3 (09:27→17:46)
[2021-09-19] MEDS: POTASSIUM CHLORIDE 20 MEQ PACKET (FOR LIQUID) 40 MEQ FEED TUBE (09:27)
[2021-09-19] MEDS: PANTOPRAZOLE SODIUM IV 40 MG VIAL IV PUSH (09:28)
[2021-09-19] MEDS: polyethylene glycoL 3350 17 GM POWD.PACK PO (09:28)
[2021-09-19] MEDS: ENOXAPARIN 40 MG/0.4 ML SYRINGE SUB-Q (09:28)
[2021-09-19] MEDS: risperiDONE 1 MG TABLET 2 MG PO ×2 (09:28→17:54)
[2021-09-19] MEDS: DIVALPROEX SODIUM ER 250 MG TAB.24H PO (09:29)
--- NOTE | 2021-09-19 11:13 | PCFNICU ---
ICU Rounding Note: Pt current nutrition is Vital 1.2 @ 70ml/hr over 22 hrs. Nutrition recommendation: Continue with current plan of care. Last recorded weight is 96.8 kg - stable with admit wt. Bowel Motility: no recorded bowel movement, continues on miralax Labs Reviewed: hgb:10.7, HCT:31.2, Alb:3.3, BUN:43, [id number] Meds Noted: Keppra, Miralax, Lovenox, Vancomycin, Decadron, Atrovent,Risperdal, Precedex. Skin: WNL Additional Notes: Tube feedings running at goal rate, pt is tolerating well. Current Tube feed is meeting 85% of estimated caloric needs and 100% of protein needs. Agree with diet orders. Following daily in ICU rounds. Will monitor every Friday and Friday..
--- NOTE | 2021-09-19 11:35 | PCPTNOTE ---
The patient treatment was not able to be completed on 09/19/2021. Checked on patient this morning for PT, per RN to wait to see patient for therapy and may check back later. Will plan to continue treatment per plan of care.
[2021-09-19 12:43] LABS: Glucose Point of Care 187 mg/dl (65-105)
--- NOTE | 2021-09-19 13:58 | WPDINTPN ---
Progress Note: A&P Assessment and Plan (1) Encephalopathy: Code(s): G93.40 - Encephalopathy, unspecified Status: Acute Assessment and Plan: Waxing and waning mentation -currently on Precedex infusion which I will hold at this time - patient is more awake, alert, oriented x3, but mumbles incomprehensibly -he does episodes where he gets panic attacks with tachycardia, elevated blood pressures in tachypnea settles down -patient did fail his swallow evaluation on 09/17/2021 -I will request re-evaluation tomorrow -currently on tube feeds via NG tube (2) Cardiac arrest: Code(s): I46.9 - Cardiac arrest, cause unspecified Status: Acute Assessment and Plan: Cardiac arrest likely related to seizure activity from possible benzodiazepine withdrawal, could also be related to hypoxia -ROSC after 1 round of compressions -patient does follow commands post cardiac arrest -troponins elevated but flat, -09/14/2021 echocardiogram: EF > 70%, RV chamber dimensions are normal, mild aortic valve sclerosis, -cardiology following the patient -09/13/2021 CT head: Normal aging brain with mild age-appropriate diffuse cerebral volume loss, no acute intracranial process (3) Acute respiratory failure with hypoxia: Code(s): J96.01 - Acute respiratory failure with hypoxia Status: Acute Assessment and Plan: Acute respiratory failure secondary cardiac arrest, also patient was hypoxic prior to the cardiac arrest could be related pneumonia, COVID-19 -intubated on 09/13/2021 -chest x-ray and ABGs reviewed -EXTUBATED on 09/15/2021: Patient was doing all day yesterday and through the night. -09/17/2021, currently on room air -continue bronchodilators -patient was initially started on imipenem and vancomycin (09/14) but were discontinued on 09/18 His WBC is normal and he is afebrile 09/13/2021: CTA chest: No pulmonary embolism, patchy airspace opacities of the lower lobes consistent with pneumonia (4) Pneumonia: Code(s): J18.9 - Pneumonia, unspecified organism Status: Acute Assessment and Plan: 09/14/2021: Sputum cultures normal oropharyngeal cortes 09/14/2021: Blood cultures, preliminary report is negative x2 09/14/2021: Urine cultures -no growth Antibiotics were discontinued on 09/18 (5) COVID-19: Code(s): U07.1 - COVID-19 Status: Acute Assessment and Plan: Patient was awaiting placement for psych facility and had to be checked for COVID-19 which turned out to be positive, at that time he was asymptomatic. -now that he is intubated 2nd hypoxia in the ER he was started on treatment -he is status post 5 days of remdesivir. - Continue dexamethasone for a total of 10 days (09/14/2021) (6) Seizure: Code(s): R56.9 - Unspecified convulsions Status: Acute Assessment and Plan: Patient had seizure activity which could be related to benzodiazepine withdrawal -currently on Keppra IV for seizures -continue current home dose of divalproex (Depakote) as per Neurology -discussed with Dr. Gamino from Neurology (7) Psychiatric illness: Code(s): F99 - Mental disorder, not otherwise specified Status: Acute Assessment and Plan: Continue Klonopin, Risperdal, valproic acid I will discuss with his psychiatrist by phone and resume his other psychiatric medications per his recommendation Will order p.r.n. Ativan for agitation (8) Hypertension: Code(s): I10 - Essential (primary) hypertension Status: Acute Assessment and Plan: Fluctuating blood pressure with sharp acute rise when he has a 'panic' attack. Blood pressure drops when patient is sleeping or come Will hold indapamide lisinopril at this time P.r.n. hydralazine ordered Resume meds as needed Additional Plan DVT prophylaxis: Enoxaparin Stress ulcer prophylaxis: Protonix Nutrition: Continue tube feeds I called to speak to Dr. Barahona who is patient's psychiatrist and waiting fo
--- NOTE | 2021-09-19 14:25 | PCOTNOTE ---
Patient not seen for OT this date. Will continue per plan of care.
[2021-09-19 18:01] LABS: Glucose Point of Care 183 mg/dl (65-105)
[2021-09-19] MEDS: LORazepam INJ (*CRX) 2 MG/ML VIAL 1 MG IV PUSH (19:38)
[2021-09-19] MEDS: ACETAMINOPHEN ELIXIR 325 MG/10.15 ML UDC 650 MG PO (19:46)
[2021-09-19] MEDS: DIVALPROEX SODIUM SPRINKLE 125 MG CAP.DR 250 MG FEED TUBE (20:55)
[2021-09-20] VITALS (25 sets, daily range): BP systolic 93–184; BP diastolic 50–97; PULSE 61–110; RESP 20–40; TEMP 36.6–37.4; O2SAT 91–100
[2021-09-20] MEDS: LORazepam INJ (*CRX) 2 MG/ML VIAL 1 MG IV PUSH ×2 (01:49→20:45)
[2021-09-20] MEDS: IPRATROPIUM BR 0.02% INH SOLN 0.5 MG/2.5 ML VIAL INHALATION ×4 (01:51→20:56)
[2021-09-20] MEDS: ALBUTEROL SULFATE NEB 2.5 MG/3 ML INH 5 MG INHALATION ×4 (01:51→20:55)
[2021-09-20 05:03] LABS: Hematocrit 30.9 % (42.0-52.0); Hemoglobin 10.6 g/dL (14.0-18.0); Mean Corpuscular HGB Conc 34.3 g/dl (32-36); Mean Corpuscular Volume 87.5 fl (80-100); Mean Platelet Volume 12.2 fl (7.4-10.4); Platelet Count Result 262 k/mm3 (150-375); Red Blood Count 3.53 M/mm3 (4.6-6.20); Red Cell Distribution Width 13.4 % (11.5-14.5); White Blood Count 12.4 K/mm3 (4.5-10.0)
[2021-09-20] MEDS: DIVALPROEX SODIUM SPRINKLE 125 MG CAP.DR 250 MG FEED TUBE ×3 (05:04→22:57)
[2021-09-20 05:18] LABS: Anion Gap 5 mmol/L (8-16); Blood Urea Nitrogen 44 mg/dL (9-20); Calcium 8.6 mg/dL (8.4-10.2); Carbon Dioxide 25 mmol/L (22-30); Chloride 111 mmol/L (98-107); Estimated CRCL calculation 96 ml/min; Estimated Glomerular Filt Rate > 60; Glucose 147 mg/dL (65-110); Magnesium 2.5 mg/dL (1.6-2.3); Potassium 4.1 mmol/L (3.4-5.0); Sodium 141 mmol/L (137-145)
[2021-09-20] MEDS: levETIRAcetam 1000MG/NACL100ML 1,000 MG/100 ML BAG 400 MG IVPB ×2 (08:34→21:02)
[2021-09-20] MEDS: polyethylene glycoL 3350 17 GM POWD.PACK PO (08:41)
[2021-09-20] MEDS: ENOXAPARIN 40 MG/0.4 ML SYRINGE SUB-Q (08:41)
[2021-09-20] MEDS: risperiDONE 1 MG TABLET 2 MG PO ×2 (08:42→16:59)
[2021-09-20] MEDS: PANTOPRAZOLE SODIUM IV 40 MG VIAL IV PUSH (08:42)
[2021-09-20] MEDS: clonazePAM (*CRX) 0.5 MG TABLET 1 MG PO ×2 (08:42→16:59)
--- NOTE | 2021-09-20 09:56 | PCSTNOTE ---
Please refer to the Bedside Swallow Evaluation in the EMR. Please note, silent aspiration cannot be ruled out at bedside.
[2021-09-20 11:32] LABS: Glucose Point of Care 231 mg/dl (65-105)
[2021-09-20 12:12] LABS: SARS-CoV-2 RNA PCR Positive
--- NOTE | 2021-09-20 12:17 | WPDINTPN ---
Progress Note: A&P Assessment and Plan (1) Encephalopathy: Code(s): G93.40 - Encephalopathy, unspecified Status: Acute Assessment and Plan: Waxing and waning mentation Off Precedex infusion since 09/19 - patient is more awake, alert, oriented x3, but mumbles incomprehensibly -he does episodes where he gets panic attacks with tachycardia, elevated blood pressures in tachypnea settles down (2) Cardiac arrest: Code(s): I46.9 - Cardiac arrest, cause unspecified Status: Acute Assessment and Plan: Cardiac arrest likely related to seizure activity from possible benzodiazepine withdrawal, could also be related to hypoxia -ROSC after 1 round of compressions -patient does follow commands post cardiac arrest -troponins elevated but flat, -09/14/2021 echocardiogram: EF > 70%, RV chamber dimensions are normal, mild aortic valve sclerosis, -cardiology following the patient -09/13/2021 CT head: Normal aging brain with mild age-appropriate diffuse cerebral volume loss, no acute intracranial process (3) Acute respiratory failure with hypoxia: Code(s): J96.01 - Acute respiratory failure with hypoxia Status: Acute Assessment and Plan: Acute respiratory failure secondary cardiac arrest, also patient was hypoxic prior to the cardiac arrest could be related pneumonia, COVID-19 09/13/2021: CTA chest: No pulmonary embolism, patchy airspace opacities of the lower lobes consistent with pneumonia -intubated on 09/13/2021 -EXTUBATED on 09/15/2021: Patient was doing all day yesterday and through the night. -09/17/2021, currently on room air -continue bronchodilators -patient was initially started on imipenem and vancomycin (09/14) but were discontinued on 09/18 He is afebrile but his WBC has increased but patient also on steroids He continues to have cough although he is on room air I will check chest x-ray Also at risk of aspiration as he is on tube feeds (4) Pneumonia: Code(s): J18.9 - Pneumonia, unspecified organism Status: Acute Assessment and Plan: 09/14/2021: Sputum cultures normal oropharyngeal cortes 09/14/2021: Blood cultures, preliminary report is negative x2 09/14/2021: Urine cultures -no growth Antibiotics were discontinued on 09/18 (5) COVID-19: Code(s): U07.1 - COVID-19 Status: Acute Assessment and Plan: Patient was awaiting placement for psych facility and had to be checked for COVID-19 which turned out to be positive, at that time he was asymptomatic. Patient was then intubated on presentation and was started on treatment -he is status post 5 days of remdesivir. - Continue dexamethasone for a total of 10 days (09/14/2021) -repeat COVID PCR done today was positive (6) Seizure: Code(s): R56.9 - Unspecified convulsions Status: Acute Assessment and Plan: Patient had seizure activity which could be related to benzodiazepine withdrawal -currently on Keppra IV for seizures -continue current home dose of divalproex (Depakote) as per Neurology -discussed with Dr. Denney from Neurology (7) Psychiatric illness: Code(s): F99 - Mental disorder, not otherwise specified Status: Acute Assessment and Plan: Continue Klonopin, Risperdal, valproic acid I spoke to patient's psychiatrist Dr. Barahona by phone yesterday and he told me the patient was having side effects from his medications of schizophrenia over last month or so. He recommends not resuming fluvoxamine or loxapine at this time. He stated the patient will need inpatient psychiatry treatment and either will need to go to inpatient psychiatric facility or a medical facility which can provide a psychiatric treatment upon discharge Will order p.r.n. Ativan for agitation (8) Hypertension: Code(s): I10 - Essential (primary) hypertension Status: Acute Assessment and Plan: Fluctuating blood pressure with sharp acute rise when he has a 'panic' attack.
[2021-09-20] MEDS: INSULIN ASPART (*BKC) 100 UNITS/ML SUB-Q (12:18)
[2021-09-20] MEDS: BISACODYL 10 MG SUPPOSITORY RECTAL (12:18)
--- NOTE | 2021-09-20 13:39 | PCFNICU ---
ICU Rounding Note: Pt current nutrition is Vital 1.2 @ 70ml/hr over 22 hrs. Nutrition recommendation: Continue with current plan of care. Last recorded weight is 101.6kg - up from 96.8kg Bowel Motility: no recorded bowel movement, continues on miralax, suppository to be ordered today Labs Reviewed: hgb:10.6, HCT:30.9, Alb:3.3, BUN:44, [id number] Meds Noted: Keppra, Miralax, Lovenox, Vancomycin, Decadron, Atrovent,Risperdal, Precedex. Skin: WNL Additional Notes: Tube feedings running at goal rate, pt is tolerating well. Current Tube feed is meeting 85% of estimated caloric needs and 100% of protein needs. Agree with diet orders. Following daily in ICU rounds. Will monitor every Friday and Friday.
--- NOTE | 2021-09-20 15:25 | PCSTNOTE ---
Therapist saw patient this afternoon for a re-assessment of his swallowing. He was awake yet still somewhat lethargic repeatedly saying to get his nurse. He took two small sips of ice chips with water, no swallow triggered however immediately coughing was noted prior to and during his attempts to swallow. Vocal quality was wet. Given small, 1/4 teaspoons of applesauce, he did appear to trigger swallows in about 2-3 seconds and no cough was noted. He was asked to cough and he was unable to trigger a cough upon request. Vocal quality varied from clear to wet. Results indicate improvement and yet beginning oral feedings is not recommended. He will be appropriate for a Modified Barium Swallow study to rule out aspiration upon release COVID isolation. Therapist will check with physician in the morning.
[2021-09-20] MEDS: ACETAMINOPHEN ELIXIR 325 MG/10.15 ML UDC 650 MG PO (18:13)
[2021-09-20 18:19] LABS: Glucose Point of Care 167 mg/dl (65-105)
[2021-09-20 23:04] LABS: Glucose Point of Care 131 mg/dl (65-105)
[2021-09-21] VITALS (24 sets, daily range): BP systolic 102–155; BP diastolic 58–86; PULSE 62–111; RESP 16–103; TEMP 37.1–38.1; O2SAT 93–100; BMI 11.0
[2021-09-21] MEDS: ACETAMINOPHEN ELIXIR 325 MG/10.15 ML UDC 650 MG PO ×2 (00:08→13:49)
[2021-09-21] MEDS: ALBUTEROL SULFATE NEB 2.5 MG/3 ML INH 5 MG INHALATION ×4 (02:56→20:22)
[2021-09-21] MEDS: IPRATROPIUM BR 0.02% INH SOLN 0.5 MG/2.5 ML VIAL INHALATION ×4 (02:57→20:22)
[2021-09-21] MEDS: LORazepam INJ (*CRX) 2 MG/ML VIAL 1 MG IV PUSH ×2 (03:29→20:01)
[2021-09-21 04:39] LABS: Hematocrit 32.3 % (42.0-52.0); Hemoglobin 10.7 g/dL (14.0-18.0); Mean Corpuscular HGB Conc 33.1 g/dl (32-36); Mean Corpuscular Hemoglobin 29.5 pg (26-34); Mean Platelet Volume 11.9 fl (7.4-10.4); Platelet Count Result 288 k/mm3 (150-375); Red Blood Count 3.63 M/mm3 (4.6-6.20); Red Cell Distribution Width 13.6 % (11.5-14.5)
[2021-09-21 04:53] LABS: Anion Gap 7 mmol/L (8-16); Blood Urea Nitrogen 49 mg/dL (9-20); Calcium 9.1 mg/dL (8.4-10.2); Carbon Dioxide 23 mmol/L (22-30); Chloride 111 mmol/L (98-107); Estimated CRCL calculation 86 ml/min; Estimated Glomerular Filt Rate > 60; Glucose 189 mg/dL (65-110); Potassium 4.2 mmol/L (3.4-5.0); Sodium 141 mmol/L (137-145)
[2021-09-21] MEDS: DIVALPROEX SODIUM SPRINKLE 125 MG CAP.DR 250 MG FEED TUBE ×3 (05:26→22:53)
[2021-09-21] MEDS: levETIRAcetam 1000MG/NACL100ML 1,000 MG/100 ML BAG 400 MG IVPB ×2 (09:21→20:02)
[2021-09-21] MEDS: BISACODYL 10 MG SUPPOSITORY RECTAL (09:28)
[2021-09-21] MEDS: clonazePAM (*CRX) 0.5 MG TABLET 1 MG PO ×3 (09:28→17:19)
[2021-09-21] MEDS: risperiDONE 1 MG TABLET 2 MG PO ×2 (09:30→17:19)
[2021-09-21] MEDS: PANTOPRAZOLE SODIUM IV 40 MG VIAL IV PUSH (09:32)
[2021-09-21] MEDS: polyethylene glycoL 3350 17 GM POWD.PACK PO (09:33)
[2021-09-21] MEDS: ENOXAPARIN 40 MG/0.4 ML SYRINGE SUB-Q (09:33)
--- NOTE | 2021-09-21 11:34 | PCNFU ---
Nutrition Follow-Up Complete: Inadequate Oral Intake as related to mechanical vent as evidenced by NPO. Goal: Meet estimated nutritional needs. Pt is currently meeting goal via tube feeding. Continue with current plan of care. Pt current nutrition is Vital 1.2 @ 70ml/hr over 22 hrs Nutrition recommendation: Last recorded weight is 101.7 kg. Bowel Motility: No BM recorded, noted suppository ordered Labs Reviewed: Hb.7, HCT:32.3, BUN:49, Glu:189 Meds Noted: eppra, Miralax, Lovenox, Vancomycin, Decadron, Atrovent,Risperdal, Precedex. Skin: WNL Additional Notes: Tube feedings running at goal rate, pt is tolerating well. Current Tube feed is meeting 85% of estimated caloric needs and 100% of protein needs. Agree with diet orders. Pt to be moved down to IMU floor. Will monitor every Friday and Friday.
--- NOTE | 2021-09-21 11:47 | PCPTNOTE ---
Attempted to see patient for PT, however patient unable to be aroused to participate with therapy. Attempted for 10 minutes to wake patient.
[2021-09-21 12:13] LABS: Glucose Point of Care 151 mg/dl (65-105)
[2021-09-21] MEDS: LACTATED RINGERS 1,000 ML 75 ML IV CONT (12:28)
--- NOTE | 2021-09-21 14:48 | WPDINTPN ---
Progress Note: A&P Assessment and Plan (1) Encephalopathy: Code(s): G93.40 - Encephalopathy, unspecified Status: Acute Assessment and Plan: Waxing and waning mentation Off Precedex infusion since 09/19 - patient is more awake, alert, oriented x3, but mumbles incomprehensibly -he does episodes where he gets panic attacks with tachycardia, elevated blood pressures in tachypnea settles down (2) Cardiac arrest: Code(s): I46.9 - Cardiac arrest, cause unspecified Status: Acute Assessment and Plan: Cardiac arrest likely related to seizure activity from possible benzodiazepine withdrawal, could also be related to hypoxia -ROSC after 1 round of compressions -patient does follow commands post cardiac arrest -troponins elevated but flat, -09/14/2021 echocardiogram: EF > 70%, RV chamber dimensions are normal, mild aortic valve sclerosis, -cardiology following the patient -09/13/2021 CT head: Normal aging brain with mild age-appropriate diffuse cerebral volume loss, no acute intracranial process (3) Acute respiratory failure with hypoxia: Code(s): J96.01 - Acute respiratory failure with hypoxia Status: Acute Assessment and Plan: Acute respiratory failure secondary cardiac arrest, also patient was hypoxic prior to the cardiac arrest could be related pneumonia, COVID-19 09/13/2021: CTA chest: No pulmonary embolism, patchy airspace opacities of the lower lobes consistent with pneumonia -intubated on 09/13/2021 -EXTUBATED on 09/15/2021: Patient was doing all day yesterday and through the night. -09/17/2021, currently on 2 L nasal cannula -continue bronchodilators -patient was initially started on imipenem and vancomycin (09/14) but were discontinued on 09/18 (4) Pneumonia: Code(s): J18.9 - Pneumonia, unspecified organism Status: Acute Assessment and Plan: 09/14/2021: Sputum cultures normal oropharyngeal cortes 09/14/2021: Blood cultures, preliminary report is negative x2 09/14/2021: Urine cultures -no growth Antibiotics were discontinued on 09/18 7/8 febrile overnight. Increased WBC chest x-ray shows Right basilar airspace opacities, consistent with atelectasis versus pneumonia Repeat. Blood and sputum cultures ordered Start empiric Zosyn (5) COVID-19: Code(s): U07.1 - COVID-19 Status: Acute Assessment and Plan: Patient was awaiting placement for psych facility and had to be checked for COVID-19 which turned out to be positive, at that time he was asymptomatic. Patient was then intubated on presentation and was started on treatment -he is status post 5 days of remdesivir. -he is on dexamethasone which will be continued for a total of 10 days (09/14/2021) -repeat COVID PCR done 09/20 was positive (6) Seizure: Code(s): R56.9 - Unspecified convulsions Status: Acute Assessment and Plan: Patient had seizure activity which could be related to benzodiazepine withdrawal -currently on Keppra IV for seizures -continue current home dose of divalproex (Depakote) as per Neurology -discussed with Dr. Denney from Neurology (7) Psychiatric illness: Code(s): F99 - Mental disorder, not otherwise specified Status: Acute Assessment and Plan: Continue Klonopin, Risperdal, valproic acid I spoke to patient's psychiatrist Dr. Barahona by phone 09/20 and he told me the patient was having side effects from his medications of schizophrenia over last month or so. He recommends not resuming fluvoxamine or loxapine at this time. He stated the patient will need inpatient psychiatry treatment and either will need to go to inpatient psychiatric facility or a medical facility which can provide a psychiatric treatment upon discharge Will order p.r.n. Ativan for agitation He does not meet criteria for any inpatient psychiatric facility with him being on oxygen and also having nasogastric tube. I tried to transfer patient to this [facility]
--- NOTE | 2021-09-21 16:56 | PCOTNOTE ---
Per RN, patient going hospice, no need for OT. RN to cancel OT orders.
[2021-09-21 17:41] LABS: Glucose Point of Care 144 mg/dl (65-105)
[2021-09-22] VITALS (10 sets, daily range): BP systolic 107–157; BP diastolic 65–93; PULSE 71–126; RESP 16–32; TEMP 36.9–38.7; O2SAT 90–98
[2021-09-22 01:58] LABS: Glucose Point of Care 107 mg/dl (65-105)
[2021-09-22] MEDS: LACTATED RINGERS 1,000 ML 75 ML IV CONT (06:29)
[2021-09-22] MEDS: DIVALPROEX SODIUM SPRINKLE 125 MG CAP.DR 250 MG FEED TUBE (06:31)
[2021-09-22] MEDS: ACETAMINOPHEN ELIXIR 325 MG/10.15 ML UDC 650 MG PO (06:31)
[2021-09-22] MEDS: LORazepam INJ (*CRX) 2 MG/ML VIAL 1 MG IV PUSH (07:39)
--- NOTE | 2021-09-22 07:47 | PCPTNOTE ---
Patient is being transferred to hospice, going to cancel physical therapy orders at this time.
[2021-09-22] MEDS: clonazePAM (*CRX) 0.5 MG TABLET 1 MG PO (09:00)
[2021-09-22] MEDS: ALBUTEROL SULFATE NEB 2.5 MG/3 ML INH 5 MG INHALATION (09:01)
[2021-09-22] MEDS: IPRATROPIUM BR 0.02% INH SOLN 0.5 MG/2.5 ML VIAL INHALATION (09:01)
[2021-09-22] MEDS: ENOXAPARIN 40 MG/0.4 ML SYRINGE SUB-Q ×2 (09:56→10:00)
[2021-09-22] MEDS: PANTOPRAZOLE SODIUM IV 40 MG VIAL IV PUSH (09:57)
[2021-09-22] MEDS: polyethylene glycoL 3350 17 GM POWD.PACK PO (09:58)
[2021-09-22] MEDS: levETIRAcetam 1000MG/NACL100ML 1,000 MG/100 ML BAG 400 MG IVPB (10:13)
[2021-09-22] MEDS: HALOPERIDOL 1 MG TABLET PO (10:13)
--- NOTE | 2021-09-22 10:13 | P.DS_ITS ---
DS: Admitting Diagnosis Discharge Date 09/22/2021 Admitting Diagnosis seizures DS: Discharge Diagnosis Discharge Diagnosis (1) Encephalopathy: Code(s): G93.40 - Encephalopathy, unspecified Status: Acute Assessment and Plan: Waxing and waning mentation Off Precedex infusion since 09/19 - patient is more awake, alert, oriented x3, but mumbles incomprehensibly -he does episodes where he gets panic attacks with tachycardia, elevated blood pressures in tachypnea settles down (2) Cardiac arrest: Code(s): I46.9 - Cardiac arrest, cause unspecified Status: Acute Assessment and Plan: Cardiac arrest likely related to seizure activity from possible benzodiazepine withdrawal, could also be related to hypoxia -ROSC after 1 round of compressions -patient does follow commands post cardiac arrest -troponins elevated but flat, -09/14/2021 echocardiogram: EF > 70%, RV chamber dimensions are normal, mild aortic valve sclerosis, -cardiology following the patient -09/13/2021 CT head: Normal aging brain with mild age-appropriate diffuse cerebral volume loss, no acute intracranial process (3) Acute respiratory failure with hypoxia: Code(s): J96.01 - Acute respiratory failure with hypoxia Status: Acute Assessment and Plan: Acute respiratory failure secondary cardiac arrest, also patient was hypoxic prior to the cardiac arrest could be related pneumonia, COVID-19 09/13/2021: CTA chest: No pulmonary embolism, patchy airspace opacities of the lower lobes consistent with pneumonia -intubated on 09/13/2021 -EXTUBATED on 09/15/2021: Patient was doing all day yesterday and through the night. -09/17/2021, currently on 2 L nasal cannula -continue bronchodilators -patient was initially started on imipenem and vancomycin (09/14) but were discontinued on 09/18 (4) Pneumonia: Code(s): J18.9 - Pneumonia, unspecified organism Status: Acute Assessment and Plan: 09/14/2021: Sputum cultures normal oropharyngeal cortes 09/14/2021: Blood cultures, preliminary report is negative x2 09/14/2021: Urine cultures -no growth Antibiotics were discontinued on 09/18 7/8 febrile overnight. Increased WBC chest x-ray shows Right basilar airspace opacities, consistent with atelectasis versus pneumonia Repeat. Blood and sputum cultures ordered Start empiric Zosyn (5) COVID-19: Code(s): U07.1 - COVID-19 Status: Acute Assessment and Plan: Patient was awaiting placement for psych facility and had to be checked for COVID-19 which turned out to be positive, at that time he was asymptomatic. Patient was then intubated on presentation and was started on treatment -he is status post 5 days of remdesivir. -he is on dexamethasone which will be continued for a total of 10 days (09/14/2021) -repeat COVID PCR done 09/20 was positive (6) Seizure: Code(s): R56.9 - Unspecified convulsions Status: Acute Assessment and Plan: Patient had seizure activity which could be related to benzodiazepine withdrawal -currently on Keppra IV for seizures -continue current home dose of divalproex (Depakote) as per Neurology -discussed with Dr. Denney from Neurology (7) Psychiatric illness: Code(s): F99 - Mental disorder, not otherwise specified Status: Acute Assessment and Plan: Continue Klonopin, Risperdal, valproic acid I spoke to patient's psychiatrist Dr. Barahona by phone 09/20 and he told me the patient was having side effects from his medications of schizophrenia over last month or so. He recommends not re
--- NOTE | 2021-09-22 12:27 | PC.NURSE ---
Pt left off unit with EMSx2 on O2@5L n/c, and jacinto intact. NGT and PIVx2 taken out before discharge. Report was called and given to Nurse at facility. No events noted.
[2021-10-09 09:02] LABS: Glucose Point of Care 148 mg/dl (65-105)
[2021-10-09 09:02] LABS: Glucose Point of Care 189 mg/dl (65-105)
[2021-10-09 09:02] LABS: Glucose Point of Care 230 mg/dl (65-105)
[2021-10-09 09:02] LABS: Glucose Point of Care 109 mg/dl (65-105)
== END 2021-09-22 12:11 | disposition hospice, inpatient (51) | DRG 208 ==
LOC: ANHED 09-13 14:23 → ANHICU 09-13 14:39
PROVIDERS: Emergency Medicine; Internal Medicine; Physician Assistant; Admitting Provider Chiropractor; Emergency Provider Emergency Medicine; PCP Internal Medicine; Visit Provider Family Medicine
DX: U07.1 COVID-19 (principal); J12.82 Pneumonia due to coronavirus disease 2019; J96.01 Acute respiratory failure with hypoxia; I46.9 Cardiac arrest, cause unspecified; R45.851 Suicidal ideations; E87.0 Hyperosmolality and hypernatremia; F13.239 Sedative, hypnotic or anxiolytic dependence with withdrawal, unspecified; G40.89 Other seizures; G93.40 Encephalopathy, unspecified; F29 Unspecified psychosis not due to a substance or known physiological condition; I10 Essential (primary) hypertension; R13.10 Dysphagia, unspecified; F41.9 Anxiety disorder, unspecified; F32.A Depression, unspecified; F20.9 Schizophrenia, unspecified; E78.5 Hyperlipidemia, unspecified; Z87.442 Personal history of urinary calculi; Z66 Do not resuscitate
CPT/HCPCS: 31500; 36415; 36600; 70450; 71045; 71275; 80048; 80053; 80202; 80307; 81001; 82375; 82805; 82948; 83050; 83605; 83735; 84100; 84443; 84460; 84484; 85025; 85027; 85380; 85610; 87040; 87070; 87077; 87086; 87186; 87205; 87449; 87899; 92610; 93005; 93306; 94002; 94003; 94640; 96361; 96374; 97110; 97163; 97165; 97530; 99285; A9270; C9113; C9803; J0248; J0282; J0330; J0360; J0461; J0743; J1100; J1650; J1815; J1953; J2060; J2704; J2930; J3370; J7030; J7040; J7120; Q9967; U0003; U0005